=== PATIENT | male | born 1940 | race Caucasian/White ===

== ENCOUNTER 2017-04-25 15:36 | Emergency (ER) | payer OTHER ==
[~2017-04-25] VITALS: Ht 182.9 cm; Wt 81.7 kg
[~2017-04-25 15:36] MED LIST: ACETAMINOPHEN325 M1 PO; ADULT WAL-100 MG/5 M PO; ALDACTONE25 MG PO; AMLODIPINE BESYL5 MG PO; APAP500 PO; ARGINAID POWDE1 EACH PO; ASPIR 8181 MG PO; ASPIRIN EC325 M1 PO; ASPIRIN325 PO; BABY SHAMPOO; BACITRACIN-POL3.5 GM OPHTHALMIC; BETADINE TOP; CALAZIME TOP; CELEXA 20 MG TA20 M1 PO; CIPRO500 MG PO; CIPRO500 MG/5 M PO; CYANOCOBALAMIN PO; DUONEB 2.5-0.5 M3 ML INH; DURAGESIC25 MCG/HR TRANSDERM; ENOXAPARIN30 MG/0.1 INJECTION; ENSURE PLUS237 ML PO; FENTANYL PA25 MCG/HR TOP; FLOMAX PO; FOLIC ACID1 MG PO; HYDROCODON-ACE1 EAC7 PO; IRON325 PO; KAYEXALATE15 GM/601 GT; LEXAPRO 10 MG T10 MG PO; LEXAPRO5 MG PO; LISINOPRIL10 MG PO; LISINOPRIL40 MG PO; LOVASTAT20 PO; MAGIC CUP PO; MAGOX 400400 MG PO; MIRALAX17 GM PO; MIRALAX255 GM PO; MULTI VITAMIN1 EACH PO; NAMENDA XR28 MG PO; NYAMYC15 GM; PRENATAL PLUS1 EACH PO; PROBIOTIC1 EAC1 PO; REFRESH TEARS15 ML OPHTHALMIC; ROVIN-CF OF TA1 EACH PO; SENNA8.6 MG PO; SILVADENE20 GM; TAMSULOSIN HCL0.4 M1 PO; TRAMADOL 50 MG50 MG PO; TRINATAL GT TA1 EACH PO; TYLENOL325 MG PO; VITAMIN C PO; VITAMIN D1000 UNI1 PO; VITAMIN D250000 UNIT PO; VITAMIN D31000 UNI2 PO; VITAMINC500 PO; ZINC PO
[2017-04-25 16:49] LABS: URINE BLOOD 3+ (Negative); URINE COLOR RED; URINE GLUCOSE-RANDOM* NEGATIVE (Negative); URINE KETONES NEGATIVE (Negative); URINE NITRITE POSITIVE (Negative); URINE PROTEIN (DIPSTICK) 2+ (Negative)
[2017-04-25 16:56] LABS: ICTOTEST (BILI CONFIRMATORY) Negative (Negative); URINE BILIRUBIN NEGATIVE (Negative)
[2017-04-25 16:57] LABS: BACTERIA >30 Many /HPF (None Seen); CASTS None Seen /LPF (None Seen); CRYSTALS None Seen /LPF (None Seen); URINE RBC >20 Many /HPF (0-2); URINE WBC >25 Many /HPF (0-5)
[2017-04-25 17:00] LABS: SQUAMOUS 0-3 Few /LPF (0-3)
[2017-04-25] MEDS ORDERED: BACTRIM DS TAB1 EACH PO (18:12)
== END 2017-04-25 19:30 ==
LOC: ER 15:36
PROVIDERS: Nurse Practitioner
DX: S91.301A Unspecified open wound, right foot, initial encounter (principal); N39.0 Urinary tract infection, site not specified; I10 Essential (primary) hypertension; F32.9 Major depressive disorder, single episode, unspecified; F03.90 Unspecified dementia, unspecified severity, without behavioral disturbance, psychotic disturbance, mood disturbance, and anxiety; Z87.891 Personal history of nicotine dependence; Z86.73 Personal history of transient ischemic attack (TIA), and cerebral infarction without residual deficits; X58.XXXA Exposure to other specified factors, initial encounter; Y93.89 Activity, other specified; Y92.89 Other specified places as the place of occurrence of the external cause; Y99.8 Other external cause status

== ENCOUNTER 2017-05-21 18:04 | Inpatient (IN) | payer OTHER ==
[~2017-05-21] VITALS: Ht 167.6 cm; Wt 68.0 kg
--- NOTE | ~2017-05-21 | O ---
[facility] [place] [address] OPERATIVE REPORT Name: KATELYN LAMB Room #: 310-P ADM IN M.R.#: [id number] Admission: 05/21/17 Attend Phys: Karson Moise MD Discharge: Date of : 42 Report #: [id number] THIS REPORT FOR: //name// CC: Karson Kay DATE OF SERVICE: 05/21/2017 SERVICE: Orthopedics. FACILITY: [facility]. SURGEON: Iftikhar Love MD DIESEL ENGINE TESTER: None. PREOPERATIVE DIAGNOSES: 1. Gangrene, right lower extremity with exposed bone. 2. Dysvascular right lower extremity with poor circulation beyond this femoral circulation. POSTOPERATIVE DIAGNOSES: 1. Gangrene, right lower extremity with exposed bone. 2. Dysvascular right lower extremity with poor circulation beyond this femoral circulation. ADDITIONAL DIAGNOSIS: Severe hip and knee flexion contractures. PROCEDURES: 1. Right above-knee amputation. 2. Increased difficulty secondary to hip and knee flexion contractures. ESTIMATED BLOOD LOSS: 150 mL. COMPLICATIONS: None. DRAINS: One Hemovac. SPECIMENS: Right lower extremity sent for pathology. HISTORY AND INDICATIONS: The patient is a 77-year-old gentleman, who was brought to [facility] where he was found to have sepsis secondary to infection, right lower extremity with a white blood cell count of 20. He was stabilized and Orthopedics was consulted for definitive treatment. He was felt to be in need of an amputation and arterial studies were performed to assess whether below knee or above knee was optimal choice. He is bedridden [facility] [address] [place] [address] OPERATIVE REPORT Name: KATELYN LAMB Room #: 310-P ADM IN M.R.#: [id number] Admission: 05/21/17 Attend Phys: Karson Moise MD Discharge: Date of : 41 Report #: [id number] and has significant flexion contractures and this in conjunction with the arterial Doppler study revealed that above-knee amputation was the optimal treatment. The risks, benefits, alternatives and indications for the surgery were discussed with his , who is his durable power of contact lens blocker and cutter. Risks include but not limited to pain, bleeding, infection, injury to nerves or blood vessels, persistent pain despite surgical intervention, wound dehiscence, need for further surgery including revision amputation as well as complications related to anesthesia such as stroke, heart attack, pulmonary complications, thromboembolic disease and . Despite these risks, she wished for him to proceed. PROCEDURE IN DETAIL: After the right lower extremity was correctly identified in the preoperative holding area as the operative extremity, the patient was taken to the operating room where general anesthesia was induced without complications. He was placed on operating table and he was positioned in optimal condition. His upper extremities were able to be positioned appropriately, but his bilateral lower extremities had significant flexion contractures that did require additional efforts, but he was padded appropriately. He was on antibiotics preoperatively. The right lower extremity was prepped and draped in standard sterile fashion. Time-out procedure was performed. A sterile tourniquet was applied to the right leg and then tourniquet was inflated to 300 mmHg. Skin flaps were drawn on the thigh anteriorly and posteriorly. X-ray after was required throughout the procedure to obtain access to the posterior soft tissues as he had a knee flexion contracture of approximately 105 degrees. The skin incisions were then made with a fish mouth flaps anteriorly and posteriorly. Dissection was taken down to the fascia, which was then incised as well and then the anterior compartment musculature was transected with cautery vessels that were encountered throughout the amputation were isolated and ligated with 2-0 silk tie and then the femur was accessed. The periosteum was incised and that was reflected with a Page elevator and then a sagittal saw was used to perform the bone cut and then the bone was beveled to provide gentle slopes to minimize the risk of bony erosion through the soft tissues. The dissection was carried on the posterior flap through the skin and through the fascia and then eventually through the musculature as well and then the leg was passed off as specimen. The wound was thoroughly irrigated and then the tourniquet was let down and hemostasis was achieved within the wound. Some muscle debulking was required in order to get a better soft tissue envelope for closure. The deep fascia was closed over a drain with 0 vicryl. Due to existing contractures, an adductor myodesis was not indicated. The superficial layer was closed with 2- vicryl followed by 3-0 nylon using a mattress suture technique. A sterile dressing was then applied to the right leg. At this point, the General Surgery team came in and the patient was transferred [address] [address] OPERATIVE REPORT Name: ADONISKATELYN Brown Room #: 310-P [facility] IN [place]#: [id number] Admission: 05/21/17 Attend Phys: Karson Moise MD Discharge: Date of : 41 Report #: [id number] off the hospital bed and then flipped into the prone position for work on the sacral wound. Please see the general surgeon's dictation for the sacral decubitus portion of the procedure. There were no complications during my procedure and all counts were recorded as correct. <ELECTRONICALLY SIGNED> By: Iftikhar Love MD 05/24/17 1043 [id number] 2330 Iftikhar Love MD /nt
--- NOTE | ~2017-05-21 | HC ---
[facility] [place] [address] CONSULTATION Name: KATELYN LAMB Room #: 310-P ADM IN M.R.#: [id number] Admission: 05/21/17 Attend Phys: Karson Moise MD Discharge: Date of : 41 Report #: [id number] THIS REPORT FOR: //name// CC: Karson Kay DATE OF SERVICE: 05/22/2017 CHIEF COMPLAINT: Ulceration to the right foot with necrosis. HISTORY OF PRESENT ILLNESS: This is a 77-year-old white male patient who resides at [facility]. He has history of cerebrovascular accident, severe dementia and peripheral vascular disease. He has been followed by Dr. Ciaran Michel at [facility] for some time. He has severe flexion contractures of his right leg with chronic pressure ulcerations to the right foot and heel area. Dr. Michel has long ago recommended above knee amputation; however, there has not been consensus on the part of family, therefore, this has not been undertaken. He is admitted with worsening condition of his foot and I have been asked to see him in this regard. The patient cannot provide any information about himself. He does make eye contact, but does not answer any questions. MEDICATIONS: At this time include lisinopril, vitamin C, vitamins, magnesium oxide, Namenda, MiraLax, Tylenol, iron, Roscoe, Lexapro, Silvadene, fentanyl patch, Ensure and bacitracin polymyxin eye ointment. 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 SOCIAL HISTORY: The patient is a former smoker according to his records, no history of alcohol or recreational drug use. FAMILY HISTORY: Unknown and unobtainable due to the patient's condition. REVIEW OF SYSTEMS: Unobtainable due to the patient's level of mental status and his inability to answer any questions. PHYSICAL EXAMINATION: VITAL SIGNS: At this time include pulse 79, respiratory rate 12, blood pressure 116/80, temperature 96.9. GENERAL: This is a chronically ill, somewhat thin-appearing male patient appears to be in no obvious distress. HEAD: Normocephalic. NECK: Supple. LUNGS: Diminished. [address] [address] CONSULTATION Name: KATELYN LAMB Room #: 310-P [facility] IN [facility]#: [id number] Admission: 05/21/17 Attend Phys: Karson Moise MD Discharge: Date of : 41 Report #: [id number] HEART: Regular rhythm. ABDOMEN: Soft. Bowel sounds are present. He has a suprapubic catheter. Examination of the pelvic region demonstrates an unstageable pressure ulcer of the sacral region covered with some eschar and yellow fibrin, no exposed structures are noted at this time, depths of the wound and extent of the wound are indeterminate due to presence of eschar and slough. EXTREMITIES: Lower extremities demonstrate flexion contractures at the hips and knees, more so on the right than on the left. He has a very large ulceration involving the medial foot and ankle on the right side with exposed bone and tendon and a large amount of necrotic material with drainage and foul odor. I am not able to palpate a distal pulse. Left lower extremity seems a little bit better perfused. Once again, I am not able to palpate a distal pulse. He has eschar on the dorsal aspects of the third, fourth and fifth toes, an abrasion and a scab on the left knee and pretibial region. These areas do not appear to be infected. CLINICAL IMPRESSION: 1. Ulceration, likely secondary to pressure and compounded by peripheral arterial disease and severe flexion contractures involving the right foot and heel region. 2. Severe flexion contractures, right lower extremity at the knee and hip. 3. Superficial ulceration to the left third, fourth and fifth toes and abrasions to the left knee. 4. Unstageable sacral pressure ulceration. 5. Peripheral arterial disease by clinical exam. 6. Severe protein-calorie malnutrition. LABORATORY DATA: Sodium 139, potassium 4.0, chloride 107, CO2 of 23, BUN 57, creatinine 1.5, glucose 92. CRP is very elevated at 237. White blood cell count of 19,000, hemoglobin 7.2, hematocrit 22.7, platelet count 447,000. Differential is 82 neutrophils, 2 bands, 11 lymphocytes, 4 monocytes, albumin is low at 2.1. Cultures are pending. X-ray evaluation of right foot demonstrates diffuse degenerative changes and osteopenic changes without focal destruction. RECOMMENDATION: At this point in time, I think we will check arterial Dopplers just to better assess his flow status to the right lower extremity with his severe flexion contractures and extensive amount of ulceration and infection involving the foot with exposed bone and other deep structures. It is fairly likely that he has underlying osteomyelitis. I am also concerned that he does not have the vascular support to be able to support wound healing in this area. Since he is nonambulatory and has severe flexion contractures, this would likely best be treated with an above knee amputation of the right lower extremity. There is no family present to discuss this option with at this time. In the near term, we will use topical quarter strength Dakin's solution and moist gauze dressings. The sacral ulceration would benefit from a surgical debridement and if he were to go to the operating room for amputated surgery of the right leg, [place] [address] [place] [address] CONSULTATION Name: SKINNYBONNIEKATELYN Room #: 310-P [facility] IN .R.#: [id number] Admission: 05/21/17 Attend Phys: Karson Moise MD Discharge: Date of : 41 Report #: [id number] would recommend that the debridement be performed at that time. The left foot areas of eschar and abrasion are dry and intact and can be left that way. He will need turning and repositioning. The patient will need aggressive nutritional support for wound healing. I appreciate being asked to see him in consultation. <ELECTRONICALLY SIGNED> By: King Miles MD 05/23/17 0911 [id number] King Miles MD /nt
--- NOTE | ~2017-05-21 | S ---
[facility] [place] [address] [place] [address] SURGICAL PATH RPT PROCEDURE Name: JACQUELYN ARECHIGA Room #: 310-P ADM IN M.R.#: [id number] Admission: 05/21/17 Date of : 41 Discharge: Report #: [id number] Path Case #: [id number] PATHOLOGY REPORT COLLECTION DATE: 05/23/2017 RECEIVED DATE: 05/23/2017 SUBMITTING PHYS: Dr. Iftikhar Love OTHER PHYS: Dr. Renetta Fernandez, DO Dr. Karson Moise SPECIMEN(S) RECEIVED: A.Right above knee amputation * * * * * * * * * * * * FINAL DIAGNOSIS: Leg, right, above knee amputation: - Ulceration, dystrophic calcification, as well as gangrenous necrosis. - Acute inflammation forming abscess extending into underlying subcutaneous tissue. - Posterior tibial and popliteal artery showing complete luminal occlusion. - Anterior tibial artery showing partial occlusion (grossly). - Skin margin viable and unremarkable. - Bone margin extends 3.1 cm from skin margin, grossly viable. (IUV:mgr; 05/27/2017) PATHOLOGIST: Doretha Lawrence M.D. REPORT ELECTRONICALLY SIGNED BY: Doretha Lawrence M.D. DATE/TIME: 05/27/2017 18:51 * * * * * * * * * * * * GROSS PATHOLOGY: The specimen is received fresh, labeled "Jacquelyn Arechiga, right ovrxc-laz-zxff amputation" is a right rquiz-bsk-amvv amputation specimen measuring 15.3 cm from the margin resection to the medial condyle, 39.8 cm from the medial malleolus to the medial condyle and 23.8 cm from the calcaneus to the tip of the great toe. There is a 3.1 cm portion of exposed femur at the margin. The margin has a andrade-yellow to pink red, lobulated to congested appearance and appears grossly viable. The specimen is covered by andrade, rubbery skin. Multiple hypopigmented scars are noted throughout ranging from 0.4-1.5 cm. Surrounding the medial malleolus, a ulcerated, desiccated to ovoid lesion is present measuring 7.5 x 6.5 cm. This lesion exposes the underlying bone and musculature. 2.5 cm distal is [address] [address] SURGICAL PATH RPT PROCEDURE Name: JACQUELYN ARECHIGA Room #: 310-P ADM IN [facility].#: [id number] Admission: 05/21/17 Date of : 41 Discharge: Report #: [id number] Path Case #: [id number] a second, ulcerated, desiccated lesion measuring 10.5 x 5.5 cm. This extends to the base of the great toe and exposes underlying bone and musculature. The dorsal surface of the second toe has a third, ulcerated, desiccated lesion measuring 2.5 x 1.5 cm. All five toes are present. All five nails are thickened and yellow. The skin on the plantar surface of the foot has a desiccated, thickened appearance. An ovoid, andrade-yellow to pink red ulcer is noted along the lateral surface of the foot near the base of the fifth toe measuring 1.5 x 0.8 cm. Sectioning through the three major vessels reveals multiple areas of stenosis. In the popliteal artery, complete obstruction is identified by andrade-yellow, friable atheromatous plaque. The anterior tibial artery shows minimal calcification. The posterior tibial artery contains loosely attached clotted blood in both the arterial and venous structures. No additional abnormalities are identified. Risk Control Officer sections are submitted as follows: A1 - soft tissue at margin A2 - tissue from skin lesions A3 - posterior tibial artery A4 - popliteal artery after decalcification (KADE; 05/24/2017) CLINICAL HISTORY: Right leg gangrene, sacral decubitus ulcer INITIAL CPT CODE(S): A; 08565, 79230 Professional services performed by [facility] at [place] [address], [place] [address] Technical services performed by [facility] at [address] [place] [address], [address] [address]. [facility] [address] [place] [address] PHONE: [phone] DIRECTOR: Rad Vizcarra M.D. * * * END OF REPORT * * *
[~2017-05-21 18:04] MED LIST changes: +BACTRIM DS TAB1 EACH PO
[2017-05-21 18:06] VITALS: BP 83/41
[2017-05-21 18:48] LABS: HEMATOCRIT 24.7 % (42.0-52.0); MCH 24.4 pg (26.0-34.0); MCHC 32.3 g/dL (28.0-37.0); MCV 75.5 fL (80.0-100.0); PLATELET COUNT 569 thou/uL (150-400); RBC 3.27 mil/uL (4.50-6.00); RDW 16.3 % (10.5-14.5); WBC 20.7 thou/uL (4.0-11.0)
[2017-05-21 18:51] LABS: CALCIUM 8.7 mg/dL (8.5-10.1); CREATININE 1.8 mg/dL (0.7-1.3); MANUAL DIFF YES; POTASSIUM 4.2 mmol/L (3.5-5.1)
[2017-05-21 19:26] LABS: ABSOLUTE NEUTROPHILS 17.4 thou/uL (1.4-8.2); TOTAL CELL COUNT 100
[2017-05-21 19:27] LABS: ANISOCYTOSIS 2+; MICROCYTES 1+; SCHISTOCYTES FEW
[2017-05-21 19:51] LABS: URINE COLOR YELLOW; URINE GLUCOSE-RANDOM* NEGATIVE (Negative); URINE KETONES NEGATIVE (Negative); URINE PROTEIN (DIPSTICK) 2+ (Negative); URINE SPECIFIC GRAVITY 1.015 (1.003-1.035)
[2017-05-21 19:52] LABS: ICTOTEST (BILI CONFIRMATORY) Negative (Negative); URINE BILIRUBIN NEGATIVE (Negative)
[2017-05-21 19:53] LABS: URINE BLOOD TRACE (Negative); URINE LEUKOCYTES-REFLEX 3+ (Negative)
[2017-05-21 20:07] LABS: CASTS None Seen /LPF (None Seen); SQUAMOUS 0-3 Few /LPF (0-3); URINE RBC 3-10 Few /HPF (0-2)
[2017-05-21] MEDS ORDERED: LEXAPRO5 MG PO (21:32)
[2017-05-21] MEDS ORDERED: JUVEN PACKET1 EACH PO (21:32)
[2017-05-21] MEDS ORDERED: SILVADENE20 GM TP (21:33)
[2017-05-21 22:38] VITALS: BP 105/41
[2017-05-21 22:45] VITALS: BP 105/41
[2017-05-22 04:17] VITALS: BP 104/64
[2017-05-22 06:37] LABS: HEMATOCRIT 22.7 % (42.0-52.0); HEMOGLOBIN 7.2 gm/dL (14.0-18.0); MCH 24.6 pg (26.0-34.0); MCV 76.9 fL (80.0-100.0); RBC 2.95 mil/uL (4.50-6.00); RDW 16.6 % (10.5-14.5)
[2017-05-22 06:51] LABS: CALCIUM 8.1 mg/dL (8.5-10.1); CREATININE 1.5 mg/dL (0.7-1.3)
[2017-05-22 09:07] VITALS: BP 95/46
[2017-05-22 12:44] VITALS: BP 116/80
[2017-05-22 20:05] VITALS: BP 127/58
[2017-05-23] VITALS (7 sets, daily range): BP systolic 106–139; BP diastolic 48–73
[2017-05-23 08:55] LABS: ALBUMIN 1.3 g/dL (3.4-5.0); CALCIUM 8.3 mg/dL (8.5-10.1); CREATININE 1.2 mg/dL (0.7-1.3); POTASSIUM 3.6 mmol/L (3.5-5.1)
[2017-05-23 10:09] LABS: BASOPHILS 0.5 % (0.0-2.0); WBC 18.8 thou/uL (4.0-11.0)
[2017-05-23 10:11] LABS: ABSOLUTE NEUTROPHILS 14.8 thou/uL (1.4-8.2); EOSINOPHILS 0.5 % (0.0-3.0); HEMATOCRIT 22.4 % (42.0-52.0); LYMPHOCYTES 12.5 % (24.0-44.0); MCH 24.3 pg (26.0-34.0); MCHC 31.1 g/dL (28.0-37.0); MCV 78.1 fL (80.0-100.0); PLATELET COUNT 430 thou/uL (150-400); POLYS 78.5 % (36.0-66.0); RBC 2.87 mil/uL (4.50-6.00); RDW 16.4 % (10.5-14.5)
[2017-05-23 10:12] LABS: MANUAL DIFF NO
[2017-05-24 04:04] VITALS: BP 123/70
[2017-05-24 04:09] LABS: HEMATOCRIT 29.6 % (42.0-52.0); MCH 25.2 pg (26.0-34.0); MCHC 31.6 g/dL (28.0-37.0); MCV 79.7 fL (80.0-100.0); RBC 3.71 mil/uL (4.50-6.00); RDW 17.5 % (10.5-14.5); WBC 16.2 thou/uL (4.0-11.0)
[2017-05-24 04:15] LABS: CALCIUM 7.9 mg/dL (8.5-10.1); POTASSIUM 3.8 mmol/L (3.5-5.1)
[2017-05-24 04:16] LABS: HEMOGLOBIN 9.4 gm/dL (14.0-18.0)
[2017-05-24 08:00] VITALS: BP 130/57
[2017-05-24 15:58] VITALS: BP 129/67
[2017-05-24 20:00] VITALS: BP 135/64
[2017-05-25 04:10] VITALS: BP 130/66
[2017-05-25 08:00] VITALS: BP 139/64
[2017-05-25 16:00] VITALS: BP 139/65
[2017-05-25 19:13] VITALS: BP 133/65
[2017-05-26 03:30] VITALS: BP 139/77
[2017-05-26 07:42] VITALS: BP 146/82
[2017-05-26 15:20] VITALS: BP 148/70
[2017-05-26 19:08] VITALS: BP 138/76
[2017-05-27 04:10] VITALS: BP 142/58
[2017-05-27 04:42] LABS: HEMATOCRIT 25.7 % (42.0-52.0); HEMOGLOBIN 8.2 gm/dL (14.0-18.0); MCH 25.4 pg (26.0-34.0); MCHC 31.9 g/dL (28.0-37.0); MCV 79.5 fL (80.0-100.0); RBC 3.24 mil/uL (4.50-6.00); WBC 13.3 thou/uL (4.0-11.0)
[2017-05-27 04:55] LABS: CALCIUM 7.5 mg/dL (8.5-10.1); CREATININE 0.8 mg/dL (0.7-1.3); POTASSIUM 3.3 mmol/L (3.5-5.1)
[2017-05-27 07:30] VITALS: BP 161/70
[2017-05-27 15:42] VITALS: BP 154/86
[2017-05-27 20:30] VITALS: BP 147/67
[2017-05-28 04:22] LABS: HEMATOCRIT 26.3 % (42.0-52.0); HEMOGLOBIN 8.5 gm/dL (14.0-18.0); MCH 25.5 pg (26.0-34.0); MCHC 32.3 g/dL (28.0-37.0); MCV 78.9 fL (80.0-100.0); RBC 3.34 mil/uL (4.50-6.00); RDW 18.4 % (10.5-14.5); WBC 12.9 thou/uL (4.0-11.0)
[2017-05-28 04:35] VITALS: BP 140/61
[2017-05-28 04:38] LABS: CALCIUM 7.6 mg/dL (8.5-10.1); CREATININE 0.9 mg/dL (0.7-1.3); POTASSIUM 3.6 mmol/L (3.5-5.1)
[2017-05-28 07:23] VITALS: BP 150/78
[2017-05-28] MEDS ORDERED: ZOSYN 2.25 GR2.25 GM IV (13:28)
[2017-05-28 15:50] VITALS: BP 143/71
== END 2017-05-28 18:18 | DRG 853 ==
LOC: ER 18:04 → 3N 21:08 → EROBS 21:08 → 3N 22:56
PROVIDERS: Emergency Medicine; Hospitalist; Nurse Practitioner Family; Surgery
PROC: 0Y670ZZ Detachment at Right Femoral Region, Open Approach (ICD-10-PCS; principal; 2017-05-21)
PROC: 0KBN0ZZ Excision of Right Hip Muscle, Open Approach (ICD-10-PCS; 2017-05-23)
PROC: 30233N1 Transfusion of Nonautologous Red Blood Cells into Peripheral Vein, Percutaneous Approach (ICD-10-PCS; 2017-05-23)
PROC: 0KBP0ZZ Excision of Left Hip Muscle, Open Approach (ICD-10-PCS; 2017-05-23)
DX: A41.9 Sepsis, unspecified organism (principal); E43 Unspecified severe protein-calorie malnutrition; L89.154 Pressure ulcer of sacral region, stage 4; N17.0 Acute kidney failure with tubular necrosis; L03.115 Cellulitis of right lower limb; I96 Gangrene, not elsewhere classified; I69.351 Hemiplegia and hemiparesis following cerebral infarction affecting right dominant side; R47.01 Aphasia; F32.9 Major depressive disorder, single episode, unspecified; F41.9 Anxiety disorder, unspecified; I73.9 Peripheral vascular disease, unspecified; R65.20 Severe sepsis without septic shock; D64.9 Anemia, unspecified; Z96.641 Presence of right artificial hip joint; M24.561 Contracture, right knee; M24.551 Contracture, right hip; L97.529 Non-pressure chronic ulcer of other part of left foot with unspecified severity; S80.212A Abrasion, left knee, initial encounter; I12.9 Hypertensive chronic kidney disease with stage 1 through stage 4 chronic kidney disease, or unspecified chronic kidney disease; N18.9 Chronic kidney disease, unspecified; F03.90 Unspecified dementia, unspecified severity, without behavioral disturbance, psychotic disturbance, mood disturbance, and anxiety; N30.90 Cystitis, unspecified without hematuria; B96.20 Unspecified Escherichia coli [E. coli] as the cause of diseases classified elsewhere; Z79.899 Other long term (current) drug therapy; Z87.891 Personal history of nicotine dependence; Z68.24 Body mass index [BMI] 24.0-24.9, adult; Z74.01 Bed confinement status
CPT/HCPCS: 10096; 50010; 50101; 50386; 50403; 53000; 53353; 53354; 56524; 56525; 56527; 56528; 57091; 62110; 62900; 70005

== ENCOUNTER 2017-06-20 13:43 | Inpatient (IN) | payer OTHER ==
[~2017-06-20] VITALS: Ht 182.9 cm; Wt 61.2 kg
--- NOTE | ~2017-06-20 | S ---
[facility] [place] [address] SURGICAL PATH RPT PROCEDURE Name: JACQUELYN ARECHIGA Room #: 421-P ADM IN M.R.#: [id number] Admission: 06/20/17 Date of : 41 Discharge: Report #: [id number] Path Case #: [id number] PATHOLOGY REPORT COLLECTION DATE: 06/24/2017 RECEIVED DATE: 06/24/2017 SUBMITTING PHYS: Dr. Paulo Fernandez, DO OTHER PHYS: Dr. Jordy Kay SPECIMEN(S) RECEIVED: A.Sacral decubitus ulcer rim * * * * * * * * * * * * FINAL DIAGNOSIS: Skin and subcutaneous tissue, "sacral ulcer", debridement: - Squamous epithelium with adjacent ulceration and focal acute ulcer exudate. - No evidence of atypia or malignancy. (SKM:christiano; 06/26/2017) PATHOLOGIST: Annabel Wooten M.D. REPORT ELECTRONICALLY SIGNED BY: Annabel Wooten M.D. DATE/TIME: 06/26/2017 12:15 * * * * * * * * * * * * GROSS PATHOLOGY: The specimen is received in formalin, labeled "Jacquelyn Arechiga and sacral ulcer", are two roughly elliptical falcon-white indurated skin with underlying hemorrhagic soft tissue measuring 7.0 x 0.8 x 0.6 and 5.0 x 0.7 x 1.5 cm. Serology Teacher section in A1. (SWS; 06/24/2017) CLINICAL HISTORY: Decubitus ulcer INITIAL CPT CODE(S): A; 23497 Professional services performed by [facility] at [facility] [address], [place] [address] Technical services performed by [facility] at [address] [place] [address]. [facility] [address] [place] [address] SURGICAL PATH RPT PROCEDURE Name: JACQUELYN ARECHIGA Room #: 421-P ADM IN .R.#: [id number] Admission: 06/20/17 Date of : 41 Discharge: Report #: [id number] Path Case #: [id number] [place] [id number] [address] PHONE: [phone] DIRECTOR: Rad Vizcarra M.D. * * * END OF REPORT * * *
--- NOTE | ~2017-06-20 | H ---
[facility] [place] [place] [address] HISTORY AND PHYSICAL Name: KATELYN LAMB Room #: 421-P ADM IN M.R.#: [id number] Admission: 06/20/17 Attend Phys: Jordy Butterfield MD Discharge: Date of : 41 Report #: [id number] THIS REPORT FOR: //name// CC: [facility] DATE OF SERVICE: 06/20/2017 CHIEF COMPLAINT: Sacral wound. HISTORY OF PRESENT ILLNESS: The patient is a 77-year-old transferred back from [facility] for surgical treatment of his sacral wound. He was previously admitted with right foot wound and subsequently underwent a right above the knee amputation due to gangrenous right foot wound with exposed bone. He was medically stabilized and then transferred to [facility] for ongoing wound care of the sacral wound and other support. He does have a history of cerebrovascular disease and prior stroke with related vascular dementia and has been total care. PAST MEDICAL HISTORY: Cerebrovascular disease, chronic kidney disease, history of colitis, history of UTI. PAST SURGICAL HISTORY: As above. FAMILY HISTORY: Unknown. SOCIAL HISTORY: He is . His is living at home. It is unknown whether he has had any alcohol or tobacco use history. ALLERGIES: No known drug allergies. MEDICATIONS: Zosyn, iron, lisinopril, fentanyl patch, Lexapro, Namenda, magnesium, MiraLax. REVIEW OF SYSTEMS: He is unable to give review. PHYSICAL EXAMINATION: VITAL SIGNS: Temperature 36.3, pulse 49, respirations 18, blood pressure /51, O2 sat 96% on room air. GENERAL: He is awake and alert, in no distress. HEAD AND NECK: Unremarkable. LUNGS: Clear. HEART: Regular. ABDOMEN: Soft, normoactive bowel sounds. Sacral wound is dressed. EXTREMITIES: No cyanosis, clubbing or edema. There is a right AKA. NEUROLOGIC: He is pleasantly confused. He moves all extremities. [facility] [address] [place] [address] HISTORY AND PHYSICAL Name: KATELYN LAMB Room #: [facility] IN [facility].#: [id number] Admission: 06/20/17 Attend Phys: Jordy Butterfield MD Discharge: Date of : 41 Report #: [id number] ASSESSMENT: 1. Sacral wound, stage 4. 2. Cerebrovascular disease. 3. Recent right above-knee amputation. 4. Senile dementia. 5. Senile debility. 6. Hypertension. PLAN: Lab work will be obtained. We will try to support his nutritional status at best as he can tolerate. He has been assessed by Dr. Fernandez from the surgical service and there is a plan for debridement of the wound next week with a diverting colostomy to minimize stool contamination of his wound, which from the LTAC facility has contributed to delayed healing. Once medically stabilized, then we will look for [facility] care situation to manage wound care. <ELECTRONICALLY SIGNED> By: Jordy Butterfield MD 06/22/1700 Jordy Butterfield MD /nt
--- NOTE | ~2017-06-20 | D ---
[facility] [place] [address] DISCHARGE SUMMARY Name: KATELYN LAMB Room #: 421-P [facility] IN M.R.#: [id number] Admission: 06/20/17 Attend Phys: Jordy Butterfield MD Discharge: 06/29/17 Date of : 41 Report #: [id number] THIS REPORT FOR: //name// CC: Jordy Jackson [facility] FINAL DIAGNOSES: 1. Stage 4 sacral decubitus wound. 2. Cerebrovascular disease. 3. Prior right above-knee amputation. 4. Right hemiparesis, late effect. PROCEDURES: 1. Surgical wound debridement and diverting colostomy placement. 2. Replacement of suprapubic catheter. HOSPITAL COURSE: The patient was admitted electively for surgical wound debridement and placement of a diverting colostomy as he was incontinent of stool, which is continually saturating his wound. Please see the operative note. He tolerated the procedure without incident, other supportive measures and medications continued along with the wound care. His suprapubic catheter was obstructed and replaced it without incident. He had no other interval complication. PHYSICAL EXAMINATION: GENERAL: On the day of discharge, he was awake and alert, lying in bed, in no distress. VITAL SIGNS: Stable. LUNGS: Clear. HEART: Regular. ABDOMEN: Soft, normoactive bowel sounds with colostomy in place, suprapubic catheter in place. EXTREMITIES: On the left showed no edema. Postoperative changes which are on the right, the sacral wound was dressed. DISPOSITION: To be transferred to LTAC facility of [facility] under the care of Dr. Alvaro De La Cruz. Wound care will continue to follow and a wound VAC will be placed. I signed his transfer medication list. <ELECTRONICALLY SIGNED> By: Jordy Butterfield MD 07/02/17 0944 0830 0919 Jordy Butterfield MD /nt
--- NOTE | ~2017-06-20 | HC ---
[facility] [place] [place] [address] CONSULTATION Name: KATELYN LAMB Room #: 421-P [facility] IN M.R.#: [id number] Admission: 06/20/17 Attend Phys: Jordy Butterfield MD Discharge: 06/29/17 Date of : 42 Report #: [id number] THIS REPORT FOR: //name// CC: Jordy Jackson [facility] DATE OF SERVICE: 06/21/2017 CHIEF COMPLAINT: Stage IV sacral pressure ulceration and right above-knee amputation. HISTORY OF PRESENT ILLNESS: This is a 77-year-old white male patient with whom I am familiar from previous hospitalization with necrosis of his right foot. He subsequently underwent above-knee amputation on the right side. He has had a stage IV pressure ulceration. He has had bowel incontinence and is here for diverting colostomy. The patient is nonverbal. PAST MEDICAL HISTORY: Positive for right above-knee amputation, history of colitis, urinary tract infection, sneiiocn-ss-vmlppn protein-calorie malnutrition, and chronic anemia. FAMILY HISTORY: Noncontributory. REVIEW OF SYSTEMS: Unobtainable due to the patient's aphasia. ALLERGIES: None. PHYSICAL EXAMINATION: VITAL SIGNS: At this time include pulse rate 52, respiratory rate 18, blood pressure 126/65, and temperature 97.9. GENERAL: This is a chronically ill-appearing male patient who appears to be in on distress. HEENT: Head normocephalic. Nose ____ clear. NECK: Supple. LUNGS: Clear. HEART: Regular ____. ABDOMEN: Soft. Bowel sounds are present. EXTREMITIES: Pelvic region demonstrates a stage IV sacral pressure ulceration. It is clean and granulating. There are sutures in place on the right above-knee amputation site, no drainage at this time. CLINICAL IMPRESSION: 1. Stage IV sacral pressure ulceration. 2. Fecal incontinence, requiring diversion. 3. Recent right above-knee amputation. [facility] [address] [place] [address] CONSULTATION Name: KATELYN LAMB Room #: 421-P REPLACED BY [facility]#: [id number] Admission: 06/20/17 Attend Phys: Jordy Butterfield MD Discharge: 06/29/17 Date of : 42 Report #: [id number] RECOMMENDATIONS: Continue with dry gauze to the right above-knee amputation and quarter-strength Dakin's moist gauze to the sacral region. He is scheduled for surgical colostomy today. We will continue to follow ____ q.2 hour turning and repositioning, aggressive nutritional support. <ELECTRONICALLY SIGNED> By: King Miles MD 07/01/17 1305 0837 1005 King Miles MD /nt
--- NOTE | ~2017-06-20 | EKG ---
[address] [address] ELECTROCARDIOGRAM REPORT Name: CATRACHITO LAMBChanel Brown Room #: 421- ADM IN M.R.#: [id number] Admission: 06/20/17 Attend Phys: Jordy Butterfield MD Discharge: Date of : 41 Report #: [id number] THIS REPORT FOR: //name// [facility] Test Date: 2017-06-22 Test Time: 17:15:20 Pat Name: KATELYN LAMB Department: Room: 421 Gender: M Stove Mounter: mary : 1940 Requested By: Paulo Fernandez Order Number: [id number] MD: Ciaran Jacome Measurements Intervals [place] Rate: 57 P: 52 UT: 197 QRS: 27 QRSD: 87 T: 84 QT: 426 QTc: 415 Interpretive Statements Sinus rhythm LVH with secondary repolarization abnormality Baseline wander in lead(s) V1 Compared to ECG 11/05/2014 12:44:21 Nonspecific change in the lateral T wave abnormality Electronically Signed On 06-23-2017 13:38:02 CDT by Ciaran Jacome [email or web address] <ELECTRONICALLY SIGNED> By: Ciaran Jacome MD, [facility] 06/23/17 1338 1715 1715 Ciaran Jacome MD, [facility] /EPI
[~2017-06-20 13:43] MED LIST changes: +JUVEN PACKET1 EACH PO; +SILVADENE20 GM TP; +ZOSYN 2.25 GR2.25 GM IV
[2017-06-20 19:58] VITALS: BP 122/51
[2017-06-21 03:47] VITALS: BP 126/65
[2017-06-21 09:34] VITALS: BP 133/70
[2017-06-21 10:06] LABS: HEMATOCRIT 36.2 % (42.0-52.0); HEMOGLOBIN 11.7 gm/dL (14.0-18.0); MCHC 32.3 g/dL (28.0-37.0); MCV 83.5 fL (80.0-100.0); RBC 4.33 mil/uL (4.50-6.00); RDW 22.3 % (10.5-14.5)
[2017-06-21 10:28] LABS: ALBUMIN 2.6 g/dL (3.4-5.0); CALCIUM 9.7 mg/dL (8.5-10.1); TOTAL BILIRUBIN 0.6 mg/dL (<0.1-1.0); TOTAL PROTEIN 8.5 g/dL (6.4-8.2)
[2017-06-21 16:33] VITALS: BP 114/68
[2017-06-21 19:59] VITALS: BP 93/58
[2017-06-22 03:10] VITALS: BP 132/69
[2017-06-22 09:03] VITALS: BP 145/78
[2017-06-22 17:36] VITALS: BP 127/64
[2017-06-22 20:00] VITALS: BP 138/66
[2017-06-22 23:33] VITALS: BP 138/66
[2017-06-23 04:30] VITALS: BP 141/87
[2017-06-23 06:19] LABS: CALCIUM 9.3 mg/dL (8.5-10.1); POTASSIUM 3.8 mmol/L (3.5-5.1)
[2017-06-23 09:00] VITALS: BP 168/93
[2017-06-23 18:00] VITALS: BP 144/57
[2017-06-23 19:37] VITALS: BP 101/48
[2017-06-24 03:34] VITALS: BP 134/62
[2017-06-24 08:30] VITALS: BP 116/85
[2017-06-24 20:00] VITALS: BP 129/67
[2017-06-25 04:00] VITALS: BP 145/88
[2017-06-25 08:01] VITALS: BP 126/82
[2017-06-25 11:32] LABS: HEMATOCRIT 33.8 % (42.0-52.0); HEMOGLOBIN 10.7 gm/dL (14.0-18.0); MCH 26.7 pg (26.0-34.0); MCHC 31.7 g/dL (28.0-37.0); MCV 84.1 fL (80.0-100.0); RBC 4.02 mil/uL (4.50-6.00); RDW 21.6 % (10.5-14.5); WBC 11.1 thou/uL (4.0-11.0)
[2017-06-25 11:49] LABS: CALCIUM 9.3 mg/dL (8.5-10.1); CREATININE 1.1 mg/dL (0.7-1.3); POTASSIUM 3.9 mmol/L (3.5-5.1)
[2017-06-25 18:02] VITALS: BP 162/90
[2017-06-25 20:00] VITALS: BP 139/66; BP 182/102
[2017-06-26 04:30] VITALS: BP 104/64
[2017-06-26 08:55] VITALS: BP 143/71
[2017-06-26 16:03] VITALS: BP 102/61
[2017-06-26 20:00] VITALS: BP 141/81
[2017-06-27 04:00] VITALS: BP 137/81
[2017-06-27 08:59] VITALS: BP 119/68
[2017-06-27 16:11] VITALS: BP 112/63
[2017-06-27 20:00] VITALS: BP 140/64; BP 98/61
[2017-06-28 04:22] VITALS: BP 138/54
[2017-06-28 07:55] VITALS: BP 119/76
[2017-06-28 15:17] VITALS: BP 119/76
[2017-06-28 15:43] VITALS: BP 108/61
[2017-06-28 21:20] VITALS: BP 130/67
[2017-06-29 03:08] VITALS: BP 129/66
[2017-06-29 07:44] VITALS: BP 126/62
== END 2017-06-29 13:31 | DRG 579 ==
LOC: 4E 13:43
PROVIDERS: Internal Medicine Geriatric Medicine
DX: L89.154 Pressure ulcer of sacral region, stage 4 (principal); E43 Unspecified severe protein-calorie malnutrition; Z68.1 Body mass index [BMI] 19.9 or less, adult; I69.351 Hemiplegia and hemiparesis following cerebral infarction affecting right dominant side; T83.098A Other mechanical complication of other urinary catheter, initial encounter; Y84.6 Urinary catheterization as the cause of abnormal reaction of the patient, or of later complication, without mention of misadventure at the time of the procedure; R15.9 Full incontinence of feces; N18.9 Chronic kidney disease, unspecified; I73.9 Peripheral vascular disease, unspecified; I12.9 Hypertensive chronic kidney disease with stage 1 through stage 4 chronic kidney disease, or unspecified chronic kidney disease; F03.90 Unspecified dementia, unspecified severity, without behavioral disturbance, psychotic disturbance, mood disturbance, and anxiety; Z89.511 Acquired absence of right leg below knee; Z87.19 Personal history of other diseases of the digestive system; Z87.440 Personal history of urinary (tract) infections; Y92.89 Other specified places as the place of occurrence of the external cause; Z79.899 Other long term (current) drug therapy; Z23 Encounter for immunization
CPT/HCPCS: 10783; 50010; 50101; 50386; 50403; 56524; 56525; 62110; 62900; 70005

== ENCOUNTER 2017-08-06 05:47 | Emergency (ER) | payer OTHER ==
[~2017-08-06] VITALS: Ht 185.4 cm; Wt 80.7 kg
== END 2017-08-06 08:22 | disposition home or self-care (01) ==
LOC: ER 05:47
DX: K94.09 Other complications of colostomy (principal); I10 Essential (primary) hypertension; I63.9 Cerebral infarction, unspecified; F32.9 Major depressive disorder, single episode, unspecified; F03.90 Unspecified dementia, unspecified severity, without behavioral disturbance, psychotic disturbance, mood disturbance, and anxiety; I73.9 Peripheral vascular disease, unspecified; E66.9 Obesity, unspecified; Z98.890 Other specified postprocedural states; Z87.891 Personal history of nicotine dependence

== ENCOUNTER 2018-02-11 16:49 | Inpatient (IN) | payer OTHER ==
[2018-02-11] VITALS (23 sets, daily range): BP systolic 87–162; BP diastolic 56–135
[~2018-02-11] VITALS: Ht 175.3 cm; Wt 53.5 kg
--- NOTE | ~2018-02-11 | HC ---
[facility] [place] [address] [place] [address] CONSULTATION Name: KATELYN LAMB Kevin Room #: 244-P ADM IN M.R.#: [id number] Admission: 02/11/18 Attend Phys: Renetta Kay MD Discharge: Date of : 41 Report #: [id number] THIS REPORT FOR: //name// CC: Renetta Kay TYPE OF REPORT: Infectious diseases consultation. REASON FOR CONSULTATION: I was asked to evaluate concerning septic shock. HISTORY OF PRESENT ILLNESS: The patient was a 77-year-old half-way resident who presents through the Emergency Room with altered mental status. He does have underlying dementia. He has had decreased urine output. Has a suprapubic catheter and a colostomy. No diarrhea reported. He has a chronic wound to his coccyx. No definite cough or sputum production. No aspiration episodes noted. Given IV fluids in the Emergency Room, he did show some improvement, but blood pressure now has dropped again. The patient was unable to give any details of his history. He did not complain of any chest pain or abdominal pain. Nursing has noticed no cough or sputum production. He does have a suprapubic catheter in place. ALLERGIES: None known. MEDICATIONS: As noted on his MAR, I have given ceftriaxone in the Emergency Room. PAST MEDICAL HISTORY: Hypertension, stroke, right hemiparesis and chronic right above the knee amputation. Depression, dementia, peripheral vascular disease, right hip dislocation, status post ORIF and hemiarthroplasty. MRSA colonizer. FAMILY HISTORY: Noncontributory. SOCIAL HISTORY: shelter resident, past smoker and no significant alcohol intake. REVIEW OF SYSTEMS: As noted above. PHYSICAL EXAMINATION: VITAL SIGNS: Temperature 97.7; blood pressure in the 80, systolic and pulse 90s. GENERAL: The patient was alert and cooperative. On room air, oxygen saturation adequate. EYES: He had conjunctivitis, right eye greater than left. MOUTH: Unremarkable. NECK: Supple. LUNGS: Coarse breath sounds in the right base posteriorly. HEART: Regular without appreciable murmur. [facility] [address] [place] [address] CONSULTATION Name: KATELYN LAMB Kevin Room #: [address] [place] [address] IN M.R.#: [id number] Admission: 02/11/18 Attend Phys: Renetta Kay MD Discharge: Date of : 41 Report #: [id number] ABDOMEN: Soft and nontender with no hepatosplenomegaly or mass. His colostomy site was unremarkable. Suprapubic catheter unremarkable. He had a small wound to his coccyx. No surrounding cellulitis and no fluctuance. Peritoneum unremarkable. Mild intertrigo to the scrotum. EXTREMITIES: Right above the knee amputation site unremarkable. Left lower extremity had stage 1 pressure wounds to the dorsum of his foot and lateral foot. LABORATORY DATA: Hemoglobin 14; WBC 25.9 and platelet count 400,000. Differential: 72% segs, 19% lymphs and lactate 2.3. Sodium 143, potassium 4.2, bicarbonate 25 and creatinine 7.4. AST 35, bilirubin 0.8, alkaline phosphatase 105, ALT 43 and albumin at 3.1. Urinalysis, many wbc's and many bacteria. Blood and urine cultures are pending. RADIOLOGICAL DATA: Chest x-ray, no acute change. IMPRESSION: A 77-year-old half-way resident with urosepsis, acute renal failure and leukocytosis. PLAN: Recommend continuing broad antibiotic coverage. Change suprapubic catheter. We will check ct abd pelvis to ensure no evidence of obstruction or hydronephrosis. IV fluids and vasopressors as necessary. <ELECTRONICALLY SIGNED> By: Dylon De La Cruz MD 02/12/18 1848 2034 0024 Dylon De La Cruz MD /nt
--- NOTE | ~2018-02-11 | EKG ---
[place] [address] [facility] [place] [address] ELECTROCARDIOGRAM REPORT Name: KATELYN LAMB Room #: 244-P ADM IN M.R.#: [id number] Admission: 02/11/18 Attend Phys: Renetta Kay MD Discharge: Date of : 41 Report #: [id number] THIS REPORT FOR: //name// [facility] ED Test Date: 2018-02-11 Test Time: 17:00:09 Pat Name: KATELYN LAMB Department: Room: Gender: M Machine Shop Helper: HAYLEE : 1940 Requested By: Alina Rodrigues Order Number: [id number] MD: Ciaran Jacome Measurements Intervals [place] Rate: 85 P: 45 IA: 170 QRS: 45 QRSD: 93 T: 79 QT: 421 QTc: 501 Interpretive Statements Sinus rhythm Atrial premature complexes Probable LVH with secondary repol abnrm Prolonged QT interval Baseline wander in lead(s) V4 Compared to ECG 06/22/2017 17:15:20 Atrial premature complex(es) now present Prolonged QT interval now present nonspecific change in the ST and T-wave segments Electronically Signed On 02-12-2018 7:49:23 CDT by Ciaran Jacome [email or web address] <ELECTRONICALLY SIGNED> By: Ciaran Jacome MD, [facility] 02/12/18 0749 170 1700 Ciaran Jacome MD, [facility] /EPI
--- NOTE | ~2018-02-11 | HC ---
[facility] [place] [address] [place] [address] CONSULTATION Name: KATELYN LAMB Room #: 428-P [facility] IN M.R.#: [id number] Admission: 02/11/18 Attend Phys: Renetta Kay MD Discharge: 02/19/18 Date of : 41 Report #: [id number] THIS REPORT FOR: //name// CC: Renetta Kay DATE OF SERVICE: 02/12/2018 WOUND CARE CONSULTATION PERSONAL PHYSICIAN: Renetta Kay MD CHIEF COMPLAINT: Sacral decubitus ulcer. HISTORY OF PRESENT ILLNESS: This is a 77-year-old white male with a longstanding history of stage 4 decubitus ulcer in his sacrococcygeal region. We saw the patient several months ago for this sacral decubitus ulcer with exposed bone. The patient was started on aggressive local wound care and the patient was discharged from the hospital and is currently at a long-term care facility. At the facility, it was noted that the patient had altered mental status and had a systolic blood pressure in the 80s. The patient was brought to the Emergency Department for further evaluation and was admitted to the hospital with the diagnosis of sepsis, UTI and dehydration. While here, we have been asked to follow the patient for his wounds. The patient himself is unable to give any history due to dementia, but according to the nursing notes, the patient still has what appears to be a resolving stage 4 decubitus ulcer in the sacrococcygeal region as well as some deep tissue type injuries on the bony prominences of his right foot. PAST MEDICAL HISTORY: Significant for hypertension, CVA, chronic protein-calorie malnutrition, dementia, peripheral arterial disease. The patient has undergone previous colostomy with kvhtp-[id number] amputation on the left. CURRENT MEDICATIONS: Multiple. I reviewed the patient's medication list. DRUG ALLERGIES: None. SOCIAL HISTORY: The patient resides in a care facility, has a remote history of smoking. Does not drink alcohol. FAMILY HISTORY AND REVIEW OF SYSTEMS: Unobtainable because of the patient's dementia. PHYSICAL EXAMINATION: VITAL SIGNS: The patient is afebrile, pulse 87, respirations 16, BP 90/74. GENERAL: This is an awake, alert and oriented x 1 person, but not place, time, [address] [address] CONSULTATION Name: KATELYN LAMB Room #: 428-P [facility] IN .R.#: [id number] Admission: 02/11/18 Attend Phys: Renetta Kay MD Discharge: 02/19/18 Date of : 41 Report #: [id number] white male who is chronically ill appearing. HEENT: Normocephalic, atraumatic. Mucous membranes are dry. Pupils are round. Sclerae white. NECK: Supple without rigidity or JVD. LUNGS: Diminished breath sounds heard throughout. HEART: Regular without murmur. ABDOMEN: Soft, nontender with PEG tube and colostomy in place. Evaluation of the sacrococcygeal region reveals a resolving stage 4 decubitus ulcer with still a small amount of palpable bone in the central portion. The rest of the ulceration is clean and granulating. The scar tissue without signs of further pressure. There is no significant tunneling. There is minimal serosanguineous drainage noted without odor. EXTREMITIES: The patient's right lower extremity has some multiple areas of bruising and nonblanchable erythema over the bony prominences at the dorsal part of the foot and toes. There are no open ulcerations noted on the right foot. Right heel is intact. Left above-the knee amputation is intact. NEUROLOGIC: Cranial nerves 2-12 grossly intact. Motor and sensory grossly intact. LABORATORY VALUES: White count 25.3, hemoglobin 12.4. BUN 174, creatinine 5.5, albumin 2.4. IMPRESSION: 1. Resolving stage 4 sacrococcygeal decubitus ulcer present on admission. 2. Sepsis. 3. Urinary tract infection. 4. Acute renal failure. 5. Protein-calorie malnutrition -- severe with the albumin of 2.4. 6. Multiple deep tissue type injuries to the right foot without open ulcerations. 7. Generalized debility. PLAN: At this time, we will use foam dressings over the sacrococcygeal ulcer changes daily and as needed p.r.n. soilage. We will use a low air loss mattress, have the patient turned every 2 hours. We will use Betadine to the right foot areas of discoloration daily. Put the patient in a foam padded boot for heel protection on the right. We will continue all other current medications. We will try to maximize the patient's protein supplementation via his PEG tube. We will continue to follow the patient while he is here. <ELECTRONICALLY SIGNED> By: Reginald Pleitez MD 02/20/18 1318 1430 0148 Reginald Pleitez MD /coleen
--- NOTE | ~2018-02-11 | HC ---
[facility] [place] [place] [address] CONSULTATION Name: KATELYN LAMB Room #: 428-P ADM IN M.R.#: [id number] Admission: 02/11/18 Attend Phys: Renetta Kay MD Discharge: Date of : 41 Report #: [id number] THIS REPORT FOR: //name// CC: Renetta Kay DATE OF SERVICE: 02/12/2018 REASON FOR CONSULTATION: Acute kidney injury. HISTORY OF PRESENT ILLNESS: The details of the history were obtained from the medical chart as the patient is not able to provide me with any history. He is a half-way facility patient, 77-year-old with past medical history of dementia. He also is known to have sacral decubitus with what seems to be diversion colostomy, suprapubic catheter. He had very decreased p.o. intake in the nursing facility per the notes. Along with that, urine output was on the low side. Blood pressure was extremely low. I am not really sure about his mental status baseline; however, there is a mention that he had some issues with change in his mental status. On presentation to the Emergency Room, he was found to have a creatinine of 7.4. Previous records were reviewed. It does look like that the patient has normal kidney function back in 2017. I am being asked to manage his acute kidney injury. PAST MEDICAL HISTORY: Obtained from the medical record: 1. Hypertension. 2. CVA. 3. Broken right hip. 4. Below-knee amputation. 5. Status post colostomy. 6. Status post suprapubic catheter. 7. Dementia. SOCIAL HISTORY: Resides in a nursing facility. FAMILY HISTORY: Unobtainable. : Unobtainable given the patient's mental status. MEDICATIONS: Listed on his medications are the followin. Lisinopril. 2. Mirtazapine. 3. Namenda. PHYSICAL EXAMINATION: GENERAL: The patient is currently lethargic. VITAL SIGNS: Blood pressure recently 73/58. HEAD AND NECK: Conjunctivitis present. [facility] [address] [place] [address] CONSULTATION Name: ADONISKATELYN Brown Room #: 428-P [facility] IN .R.#: [id number] Admission: 02/11/18 Attend Phys: Renetta Kay MD Discharge: Date of : 41 Report #: [id number] CHEST: No crackles. CARDIOVASCULAR: No rub. ABDOMEN: Suprapubic catheter with a colostomy. LOWER EXTREMITIES: Below-knee amputation. LABORATORY DATA: Laboratory values reviewed. Sodium 150, potassium 3.7, BUN 174, creatinine 5.5, down from 7.4 on presentation. IMAGING: CT abdomen and pelvis, chest x-ray reviewed. ASSESSMENT, IMPRESSION, PLAN: 1. Acute kidney injury. 2. Hypernatremia. 3. Hypotension with what seems to be severe sepsis. 4. Decubitus ulcers. 5. Status post diversion colostomy. 6. Suprapubic catheter. 7. This all seems to be due to prerenal causes. 8. We will reformulate the IV fluid. 9. Septic workup initiated. 10. Broad-spectrum antibiotics. 11. Urine output being monitored through his suprapubic catheter. 12. Follow cultures and adjust antibiotic accordingly. 13. Avoid nephrotoxins. 14. Manage his blood pressure with IV fluids, pressors. 15. We will continue to follow along. <ELECTRONICALLY SIGNED> By: Tray Reaves MD 02/14/18 0758 0807 0921 Tray Reaves MD /nt
[2018-02-11 17:27] LABS: MCH 27.6 pg (26.0-34.0); MCHC 32.5 g/dL (28.0-37.0); MCV 84.9 fL (80.0-100.0); PLATELET COUNT 400 thou/uL (150-400); RBC 5.07 mil/uL (4.50-6.00); RDW 15.3 % (10.5-14.5); WBC 25.9 thou/uL (4.0-11.0)
[2018-02-11 17:29] LABS: URINE CLARITY CLOUDY; URINE COLOR YELLOW
[2018-02-11 17:30] LABS: URINE BILIRUBIN NEGATIVE (Negative); URINE BLOOD 1+ (Negative); URINE GLUCOSE-RANDOM* NEGATIVE (Negative); URINE KETONES NEGATIVE (Negative); URINE LEUKOCYTES 3+ (Negative); URINE NITRITE NEGATIVE (Negative); URINE PROTEIN (DIPSTICK) 2+ (Negative); URINE SPECIFIC GRAVITY 1.015 (1.005-1.035); URINE UROBILINOGEN 0.2 E.U./dl (0.2-1.0)
[2018-02-11 17:31] LABS: URINE RBC 3-10 Few /HPF (0-2); URINE WBC >25 Many /HPF (0-5)
[2018-02-11 17:32] LABS: BACTERIA >30 Many /HPF (None Seen); CASTS None Seen /LPF (None Seen); CRYSTALS None Seen /LPF (None Seen); SQUAMOUS 0-3 Few /LPF (0-3)
[2018-02-11 17:42] LABS: CALCIUM 9.7 mg/dL (8.5-10.1); CREATININE 7.4 mg/dL (0.7-1.3); POTASSIUM 4.2 mmol/L (3.5-5.1)
[2018-02-11 17:47] LABS: ALBUMIN 3.1 g/dL (3.4-5.0); TOTAL BILIRUBIN 0.8 mg/dL (<0.1-1.0); TOTAL PROTEIN 9.7 g/dL (6.4-8.2)
[2018-02-11 18:14] LABS: ABSOLUTE NEUTROPHILS 18.6 thou/uL (1.4-8.2)
[2018-02-11] MEDS ORDERED: SENNA8.6 MG PO (18:38)
[2018-02-11] MEDS ORDERED: REMERON15 MG PO (18:39)
[2018-02-11 22:21] LABS: CALCIUM 8.8 mg/dL (8.5-10.1); CREATININE 6.5 mg/dL (0.7-1.3); POTASSIUM 3.9 mmol/L (3.5-5.1)
[2018-02-12] VITALS (60 sets, daily range): BP systolic 64–234; BP diastolic 32–198
[2018-02-12 04:54] LABS: HEMATOCRIT 38.1 % (42.0-52.0); HEMOGLOBIN 12.4 gm/dL (14.0-18.0); MCH 27.6 pg (26.0-34.0); MCHC 32.6 g/dL (28.0-37.0); MCV 84.7 fL (80.0-100.0); RBC 4.49 mil/uL (4.50-6.00); RDW 15.3 % (10.5-14.5); WBC 25.3 thou/uL (4.0-11.0)
[2018-02-12 05:08] LABS: PLATELET COUNT 294 thou/uL (150-400)
[2018-02-12 05:15] LABS: ALBUMIN 2.4 g/dL (3.4-5.0); CALCIUM 8.6 mg/dL (8.5-10.1); POTASSIUM 3.7 mmol/L (3.5-5.1); TOTAL BILIRUBIN 0.8 mg/dL (<0.1-1.0); TOTAL PROTEIN 7.8 g/dL (6.4-8.2)
[2018-02-12 05:25] LABS: CREATININE 5.5 mg/dL (0.7-1.3)
[2018-02-12 07:47] LABS: ABSOLUTE NEUTROPHILS 20.7 thou/uL (1.4-8.2)
[2018-02-12 07:48] LABS: ANISOCYTOSIS SLIGHT; LARGE PLATELETS OCCASIONAL; POIKILOCYTOSIS SLIGHT
[2018-02-13] VITALS (43 sets, daily range): BP systolic 63–134; BP diastolic 19–105
[2018-02-13 05:58] LABS: HEMOGLOBIN 10.5 gm/dL (14.0-18.0); MCH 27.7 pg (26.0-34.0); MCHC 32.9 g/dL (28.0-37.0); MCV 84.3 fL (80.0-100.0); RBC 3.8 mil/uL (4.50-6.00); RDW 15.4 % (10.5-14.5)
[2018-02-13 06:03] LABS: ALBUMIN 2.8 g/dL (3.4-5.0); CALCIUM 8.1 mg/dL (8.5-10.1); PHOSPHORUS 2.9 mg/dL (2.5-4.9)
[2018-02-13 06:09] LABS: CREATININE 3.5 mg/dL (0.7-1.3); POTASSIUM 2.8 mmol/L (3.5-5.1)
[2018-02-14 00:01] VITALS: BP 105/51
[2018-02-14 00:45] VITALS: BP 104/66
[2018-02-14 05:27] LABS: ALBUMIN 2.6 g/dL (3.4-5.0); CALCIUM 8.8 mg/dL (8.5-10.1); PHOSPHORUS 2.8 mg/dL (2.5-4.9); POTASSIUM 3.5 mmol/L (3.5-5.1)
[2018-02-14 05:38] LABS: CREATININE 2.5 mg/dL (0.7-1.3)
[2018-02-14 08:05] VITALS: BP 82/44
[2018-02-14 11:32] VITALS: BP 124/70
[2018-02-14 16:27] VITALS: BP 99/59
[2018-02-14 19:40] VITALS: BP 112/71
[2018-02-15 04:45] VITALS: BP 104/49
[2018-02-15 06:13] LABS: ALBUMIN 2.3 g/dL (3.4-5.0); CALCIUM 8.4 mg/dL (8.5-10.1); CREATININE 2.1 mg/dL (0.7-1.3); PHOSPHORUS 2.6 mg/dL (2.5-4.9); POTASSIUM 3.4 mmol/L (3.5-5.1)
[2018-02-15 19:43] VITALS: BP 92/28
[2018-02-16 04:30] VITALS: BP 114/99
[2018-02-16 06:53] LABS: HEMATOCRIT 37.9 % (42.0-52.0); HEMOGLOBIN 12.1 gm/dL (14.0-18.0); MCH 27.6 pg (26.0-34.0); MCV 86.3 fL (80.0-100.0); RBC 4.38 mil/uL (4.50-6.00); RDW 15.2 % (10.5-14.5); WBC 18.1 thou/uL (4.0-11.0)
[2018-02-16 07:19] LABS: ALBUMIN 2.4 g/dL (3.4-5.0); CALCIUM 8.7 mg/dL (8.5-10.1); CREATININE 1.7 mg/dL (0.7-1.3); PHOSPHORUS 2.1 mg/dL (2.5-4.9); POTASSIUM 3.6 mmol/L (3.5-5.1); TOTAL BILIRUBIN 0.7 mg/dL (<0.1-1.0); TOTAL PROTEIN 7.6 g/dL (6.4-8.2)
[2018-02-16 07:30] VITALS: BP 113/67
[2018-02-16 16:30] VITALS: BP 117/69
[2018-02-16 19:43] VITALS: BP 111/63
[2018-02-17 04:29] VITALS: BP 123/74
[2018-02-17 06:13] LABS: ABSOLUTE NEUTROPHILS 13.3 thou/uL (1.4-8.2); BASOPHILS 0.3 % (0.0-2.0); EOSINOPHILS 2.8 % (0.0-3.0); HEMATOCRIT 33.1 % (42.0-52.0); HEMOGLOBIN 10.8 gm/dL (14.0-18.0); LYMPHOCYTES 14.5 % (24.0-44.0); MCH 28.1 pg (26.0-34.0); MCHC 32.6 g/dL (28.0-37.0); MCV 86.1 fL (80.0-100.0); MONOCYTES 6.4 % (1.0-8.0); PLATELET COUNT 248 thou/uL (150-400); RBC 3.85 mil/uL (4.50-6.00); RDW 15.3 % (10.5-14.5); WBC 17.5 thou/uL (4.0-11.0)
[2018-02-17 06:25] LABS: ALBUMIN 2.4 g/dL (3.4-5.0); CALCIUM 8.2 mg/dL (8.5-10.1); CREATININE 1.3 mg/dL (0.7-1.3); PHOSPHORUS 2.4 mg/dL (2.5-4.9)
[2018-02-17 08:05] VITALS: BP 83/45
[2018-02-17 08:43] VITALS: BP 102/55
[2018-02-17 15:48] VITALS: BP 116/75
[2018-02-17 19:13] VITALS: BP 112/72
[2018-02-18 06:17] LABS: HEMATOCRIT 30.2 % (42.0-52.0); HEMOGLOBIN 9.9 gm/dL (14.0-18.0); MCH 28.4 pg (26.0-34.0); MCHC 32.9 g/dL (28.0-37.0); MCV 86.2 fL (80.0-100.0); RBC 3.5 mil/uL (4.50-6.00); RDW 15.4 % (10.5-14.5)
[2018-02-18 06:41] LABS: ALBUMIN 2.3 g/dL (3.4-5.0); CALCIUM 8.2 mg/dL (8.5-10.1); CREATININE 1.3 mg/dL (0.7-1.3); PHOSPHORUS 2.7 mg/dL (2.5-4.9); POTASSIUM 4.1 mmol/L (3.5-5.1)
[2018-02-18 07:37] VITALS: BP 95/62
[2018-02-18 16:00] VITALS: BP 118/60
[2018-02-18 20:11] VITALS: BP 123/69
[2018-02-19 04:21] VITALS: BP 135/80
[2018-02-19 07:43] VITALS: BP 133/70
[2018-02-19] MEDS ORDERED: DUONEB 2.5-0.5 M3 ML INH (09:42)
[2018-02-19] MEDS ORDERED: AUGMENTIN 500-1 EACH PO (09:43)
[2018-02-19] MEDS ORDERED: CIPROFLOXIN HC2.5 M1 OPHTHALMIC (09:44)
[2018-02-19] MEDS ORDERED: NAMENDA 5 MG TAB5 M1 PO (09:46)
[2018-02-19 13:04] VITALS: BP 133/70
== END 2018-02-19 13:36 | DRG 871 ==
LOC: ER 16:49 → ICU 18:12 → EROBS 18:12 → ICU 18:55 → 4E 02-14 00:24
PROVIDERS: Hospitalist; Internal Medicine; Internal Medicine Nephrology; Physician Assistant; Specialist
PROC: 02HV33Z Insertion of Infusion Device into Superior Vena Cava, Percutaneous Approach (ICD-10-PCS; principal; 2018-02-11)
DX: A41.9 Sepsis, unspecified organism (principal); L89.154 Pressure ulcer of sacral region, stage 4; G92 Toxic encephalopathy; E43 Unspecified severe protein-calorie malnutrition; R65.21 Severe sepsis with septic shock; J69.0 Pneumonitis due to inhalation of food and vomit; N39.0 Urinary tract infection, site not specified; N17.9 Acute kidney failure, unspecified; E87.0 Hyperosmolality and hypernatremia; Z68.1 Body mass index [BMI] 19.9 or less, adult; I69.351 Hemiplegia and hemiparesis following cerebral infarction affecting right dominant side; J98.11 Atelectasis; E86.0 Dehydration; R13.12 Dysphagia, oropharyngeal phase; I12.9 Hypertensive chronic kidney disease with stage 1 through stage 4 chronic kidney disease, or unspecified chronic kidney disease; N18.3 Chronic kidney disease, stage 3 (moderate); H10.021 Other mucopurulent conjunctivitis, right eye; D64.9 Anemia, unspecified; F32.9 Major depressive disorder, single episode, unspecified; F03.90 Unspecified dementia, unspecified severity, without behavioral disturbance, psychotic disturbance, mood disturbance, and anxiety; I73.9 Peripheral vascular disease, unspecified; E87.6 Hypokalemia; B96.20 Unspecified Escherichia coli [E. coli] as the cause of diseases classified elsewhere; B96.4 Proteus (mirabilis) (morganii) as the cause of diseases classified elsewhere; Z96.641 Presence of right artificial hip joint; Z89.611 Acquired absence of right leg above knee; Z93.3 Colostomy status; Z86.14 Personal history of Methicillin resistant Staphylococcus aureus infection; Z87.891 Personal history of nicotine dependence; Z79.899 Other long term (current) drug therapy
CPT/HCPCS: 10078; 10783; 27000

== ENCOUNTER 2018-09-04 13:24 | Inpatient (IN) | payer OTHER ==
[~2018-09-04] VITALS: Ht 182.9 cm; Wt 68.4 kg
--- NOTE | ~2018-09-04 | HC ---
[facility] [place] [place] [address] CONSULTATION Name: KATELYN LAMB Room #: 217-P ADM IN M.R.#: [id number] Admission: 09/04/18 Attend Phys: Renetta Kay MD Discharge: Date of : 41 Report #: [id number] THIS REPORT FOR: //name// CC: Renetta Kay DATE OF SERVICE: 09/05/2018 CHIEF COMPLAINT: Left foot wounds. HISTORY OF PRESENT ILLNESS: This is a 78-year-old white male that we have taken care of in the past for decubitus ulcers in the gluteal and sacral region as well as multiple other wounds. The patient also had wound on his right lower extremity, ultimately requiring an above the knee amputation. The patient is currently admitted for urinary tract infection, and we have been asked to care for the wounds at this time. The patient himself is unable to give any history whatsoever secondary to advanced dementia and there is no one else in the room to give any other history. PAST MEDICAL HISTORY: From the records is significant for hypertension, previous CVA with right-sided weakness, severe protein-calorie malnutrition, depression, severe dementia, peripheral vascular disease, suprapubic catheter secondary to urinary retention, colostomy. CURRENT MEDICATIONS: Multiple, I reviewed the patient's medication list. DRUG ALLERGIES: None. SOCIAL HISTORY: The patient resides in [place]. The patient has a history of smoking, quitting several years ago. No alcohol use at this time. FAMILY HISTORY: Not pertinent to current medical condition. REVIEW OF SYSTEMS: Unobtainable secondary to the patient's dementia. PHYSICAL EXAMINATION: VITAL SIGNS: Temperature 37.1, pulse 68, respirations 12, BP 94/48. GENERAL: This is an alert and oriented x 1 person, but not place or time, white male who is chronically ill appearing and appears very frail. HEENT: Normocephalic, atraumatic. Mucous membranes are dry. Pupils are round. Sclerae are white. NECK: Supple, without JVD or masses. LUNGS: Diminished breath sounds heard throughout with occasional scattered wheeze. HEART: Regular, without murmur. ABDOMEN: Soft, nontender. Colostomy is in place and functioning well. EXTREMITIES: Evaluation of his sacral and gluteal area reveals blanchable [facility] [address] [place] [address] CONSULTATION Name: KATELYN LAMB Room #: [address] [place] [address] IN .R.#: [id number] Admission: 09/04/18 Attend Phys: Renetta Kay MD Discharge: Date of : 41 Report #: [id number] erythema and old scar tissue from previous ulceration, but no new or open ulcerations are noted. Evaluation of right gnmxi-ksu-rmcq amputation reveals no open ulcerations. The stump is warm and appears intact. Evaluation of left lower extremity reveals 2 deep tissue injuries along the lateral aspect of the left foot, one at the base of the fifth metatarsal and one the head of the fifth metatarsal. Neither one of these are open. They are ecchymotic with the matti-ulcer being intact without significant erythema or signs of cellulitis. NEUROLOGIC: Cranial nerves 2-12 are grossly intact. Motor and sensory grossly intact. LABORATORY DATA: White count 27.7, hemoglobin 16.7. Lactic acid was 2.5, albumin is 2.3, prealbumin is 11.6. Arterial Doppler of the left lower extremity shows decreased flow in the popliteal and infrapopliteal region in the left leg arteries suggesting a significant stenosis or occlusion proximally. IMPRESSION: 1. Urinary tract infection with sepsis. 2. Deep tissue injury to the base of the fifth metatarsal head on the lateral aspect without signs of cellulitis. No open ulceration at this time. 3. Deep tissue injury to the distal fifth metatarsal head lateral aspect with no open ulceration noted. No signs of cellulitis. 4. History of sacral and gluteal ulcerations, now resolved. 5. Severe dementia. 6. Hypertension. 7. Protein calorie malnutrition -- severe with albumin of 2.3 with prealbumin of 11.6. 8. Peripheral arterial disease with concern for occlusion or stenosis in the left lower extremity. PLAN: At this time, we will continue with foam dressings to the left lateral foot ulcerations, change this Saturday, Saturday and Saturday. We will get a heel protection boot, the patient to be worn at all times. We will get a low air loss mattress given the fact that the patient is at significant risk for breakdown in the bony prominences; however, no other signs of breakdown is noted. We will start barrier cream to the sacrococcygeal region for protection. Have the patient turned every 2 hours. We will put a consult in to Jordy Do for Interventional Radiology evaluation of the abnormal left lower extremity ultrasound. We will make sure we maximize the patient's protein supplementation for healing. We will attempt to utilize physical and occupational therapy; however, I do not think the patient is a good candidate for this given his advanced dementia. We will continue all other medicines and we will continue to follow the patient. [address] [place] [address] CONSULTATION Name: KATELYN LAMB Room #: 217-P ADM IN .R.#: [id number] Admission: 09/04/18 Attend Phys: Renetta Kay MD Discharge: Date of : 41 Report #: [id number] I appreciate the ability to consult. <ELECTRONICALLY SIGNED> By: Reginald Pleitez MD 09/09/18 0957 1155 1213 Reginald Pleitez MD /nt
[~2018-09-04 13:24] MED LIST changes: +AUGMENTIN 500-1 EACH PO; +CIPROFLOXIN HC2.5 M1 OPHTHALMIC; +NAMENDA 5 MG TAB5 M1 PO; +REMERON15 MG PO
[2018-09-04 13:25] VITALS: BP 109/78
[2018-09-04 14:02] LABS: URINE BLOOD NEGATIVE (Negative); URINE CLARITY CLOUDY; URINE COLOR BROWN; URINE GLUCOSE-RANDOM* NEGATIVE (Negative); URINE KETONES TRACE (Negative); URINE PROTEIN (DIPSTICK) 3+ (Negative); URINE SPECIFIC GRAVITY <= 1.005 (1.005-1.035)
[2018-09-04 14:03] LABS: URINE LEUKOCYTES-REFLEX 3+ (Negative); URINE NITRITE-REFLEX POSITIVE (Negative)
[2018-09-04 14:08] LABS: ICTOTEST (BILI CONFIRMATORY) Negative (Negative); URINE BILIRUBIN NEGATIVE (Negative)
[2018-09-04 14:09] LABS: TRIPLE PHOSPHATE CRYSTALS 0-3 Few /LPF (None Seen)
[2018-09-04 14:10] LABS: CASTS None Seen /LPF (None Seen); SQUAMOUS 0-3 Few /LPF (0-3)
[2018-09-04 14:11] LABS: URINE RBC None Seen /HPF (0-2); URINE WBC-REFLEX 0-5 Rare /HPF (0-5)
[2018-09-04 14:13] LABS: BACTERIA-REFLEX >30 Many /HPF (None Seen)
[2018-09-04 14:41] LABS: CREATININE 1.8 mg/dL (0.7-1.3); POTASSIUM 4.2 mmol/L (3.5-5.1)
[2018-09-04 14:55] LABS: HEMATOCRIT 51.8 % (42.0-52.0); HEMOGLOBIN 16.7 gm/dL (14.0-18.0); MCH 26.4 pg (26.0-34.0); MCHC 32.2 g/dL (28.0-37.0); MCV 81.8 fL (80.0-100.0); RBC 6.33 mil/uL (4.50-6.00); WBC 27.7 thou/uL (4.0-11.0)
[2018-09-04 15:25] LABS: ABSOLUTE NEUTROPHILS 20.8 thou/uL (1.4-8.2); PLATELET COUNT 301 thou/uL (150-400)
[2018-09-04 15:51] VITALS: BP 106/76
[2018-09-04 16:17] VITALS: BP 117/68
[2018-09-04 17:28] VITALS: BP 96/55
[2018-09-04 19:35] VITALS: BP 101/75
[2018-09-05 03:50] VITALS: BP 107/81
[2018-09-05 05:59] LABS: CALCIUM 9.1 mg/dL (8.5-10.1); CREATININE 1.5 mg/dL (0.7-1.3); POTASSIUM 3.9 mmol/L (3.5-5.1)
[2018-09-05 07:40] VITALS: BP 116/77
[2018-09-05 15:56] VITALS: BP 131/91
[2018-09-05 19:21] VITALS: BP 117/77
[2018-09-06 03:25] VITALS: BP 141/78
[2018-09-06 04:42] LABS: HEMATOCRIT 42.2 % (42.0-52.0); MCH 26.7 pg (26.0-34.0); MCHC 31.9 g/dL (28.0-37.0); MCV 83.8 fL (80.0-100.0); RBC 5.03 mil/uL (4.50-6.00); RDW 18.9 % (10.5-14.5); WBC 20.5 thou/uL (4.0-11.0)
[2018-09-06 04:46] LABS: HEMOGLOBIN 13.4 gm/dL (14.0-18.0)
[2018-09-06 04:51] LABS: CREATININE 1.8 mg/dL (0.7-1.3); POTASSIUM 3.5 mmol/L (3.5-5.1)
[2018-09-06 08:17] VITALS: BP 94/48
[2018-09-06 20:30] VITALS: BP 102/56
[2018-09-07 04:30] VITALS: BP 127/49
[2018-09-07 07:34] VITALS: BP 123/91
[2018-09-07 16:00] VITALS: BP 116/72
[2018-09-07 20:10] VITALS: BP 124/74
[2018-09-08 05:45] LABS: HEMATOCRIT 36.3 % (42.0-52.0); HEMOGLOBIN 11.6 gm/dL (14.0-18.0); MCH 26.1 pg (26.0-34.0); MCV 81.7 fL (80.0-100.0); RBC 4.44 mil/uL (4.50-6.00); RDW 17.8 % (10.5-14.5)
[2018-09-08 06:00] LABS: CALCIUM 8.6 mg/dL (8.5-10.1); CREATININE 1.3 mg/dL (0.7-1.3); POTASSIUM 3.8 mmol/L (3.5-5.1)
[2018-09-08 07:31] VITALS: BP 117/65
[2018-09-08 17:00] VITALS: BP 91/41
[2018-09-08 20:45] VITALS: BP 126/84
[2018-09-08 21:14] LABS: MAGNESIUM 1.8 mg/dL (1.8-2.4); TROPONIN-I 0.06 ng/mL (<0.06)
[2018-09-09 01:07] VITALS: BP 110/60
[2018-09-09 04:28] LABS: CALCIUM 8.2 mg/dL (8.5-10.1); CREATININE 1.1 mg/dL (0.7-1.3); POTASSIUM 4.2 mmol/L (3.5-5.1)
[2018-09-09 04:49] VITALS: BP 116/60
[2018-09-09 07:52] VITALS: BP 120/55
[2018-09-09 16:36] VITALS: BP 93/48
[2018-09-09 19:55] VITALS: BP 113/59
[2018-09-10 04:43] LABS: HEMATOCRIT 34.8 % (42.0-52.0); MCH 25.9 pg (26.0-34.0); MCHC 31.8 g/dL (28.0-37.0); MCV 81.6 fL (80.0-100.0); RBC 4.26 mil/uL (4.50-6.00); WBC 13.6 thou/uL (4.0-11.0)
[2018-09-10 04:45] VITALS: BP 111/65
[2018-09-10 08:44] VITALS: BP 103/81
[2018-09-10 10:52] VITALS: BP 77/28
[2018-09-10 10:53] VITALS: BP 60/52
[2018-09-10 19:31] VITALS: BP 118/62
[2018-09-11 00:45] VITALS: BP 94/63
[2018-09-11 06:07] VITALS: BP 124/42
[2018-09-11 07:30] VITALS: BP 105/69
[2018-09-11 11:10] VITALS: BP 11/76
[2018-09-11] MEDS ORDERED: MSL20MG/ML PO (14:37)
[2018-09-11 15:20] VITALS: BP 109/49
== END 2018-09-11 17:33 | DRG 853 ==
LOC: ER 13:24 → EROBS 15:34 → 4E 15:34 → 2N 09-08 15:42
PROVIDERS: Emergency Medicine; Internal Medicine
PROC: B4181ZZ Fluoroscopy of Bilateral Renal Arteries using Low Osmolar Contrast (ICD-10-PCS; principal; 2018-09-09)
PROC: 047A34Z Dilation of Left Renal Artery with Drug-eluting Intraluminal Device, Percutaneous Approach (ICD-10-PCS; principal; 2018-09-09)
PROC: B4101ZZ Fluoroscopy of Abdominal Aorta using Low Osmolar Contrast (ICD-10-PCS; principal; 2018-09-09)
PROC: 047934Z Dilation of Right Renal Artery with Drug-eluting Intraluminal Device, Percutaneous Approach (ICD-10-PCS; principal; 2018-09-09)
DX: A41.9 Sepsis, unspecified organism (principal); E43 Unspecified severe protein-calorie malnutrition; J69.0 Pneumonitis due to inhalation of food and vomit; E87.0 Hyperosmolality and hypernatremia; N39.0 Urinary tract infection, site not specified; N17.9 Acute kidney failure, unspecified; I69.351 Hemiplegia and hemiparesis following cerebral infarction affecting right dominant side; I10 Essential (primary) hypertension; F32.9 Major depressive disorder, single episode, unspecified; F03.90 Unspecified dementia, unspecified severity, without behavioral disturbance, psychotic disturbance, mood disturbance, and anxiety; I73.9 Peripheral vascular disease, unspecified; R65.20 Severe sepsis without septic shock; E86.0 Dehydration; T14.8XXA Other injury of unspecified body region, initial encounter; E86.9 Volume depletion, unspecified; D64.9 Anemia, unspecified; S30.810A Abrasion of lower back and pelvis, initial encounter; E11.622 Type 2 diabetes mellitus with other skin ulcer; R13.12 Dysphagia, oropharyngeal phase; A49.02 Methicillin resistant Staphylococcus aureus infection, unspecified site; I95.9 Hypotension, unspecified; Z28.21 Immunization not carried out because of patient refusal; Z93.3 Colostomy status; Z87.891 Personal history of nicotine dependence; Z68.20 Body mass index [BMI] 20.0-20.9, adult; X58.XXXA Exposure to other specified factors, initial encounter; Y93.89 Activity, other specified; Y92.89 Other specified places as the place of occurrence of the external cause; Y99.8 Other external cause status
CPT/HCPCS: 10081; 10084

== ENCOUNTER 2020-06-16 17:40 | Inpatient (IN) | payer OTHER ==
[~2020-06-16] VITALS: Ht 170.2 cm; Wt 71.9 kg
[~2020-06-16 17:40] MED LIST changes: +MSL20MG/ML PO
[2020-06-16 17:45] VITALS: BP 111/81
[2020-06-16 18:20] LABS: ABSOLUTE NEUTROPHILS 6.1 thou/uL (1.4-8.2); BASOPHILS 0.3 % (0.0-2.0); EOSINOPHILS 0.2 % (0.0-3.0); HEMOGLOBIN 15.6 gm/dL (14.0-18.0); LYMPHOCYTES 21.8 % (24.0-44.0); MCH 27.1 pg (26.0-34.0); MCHC 31.8 g/dL (28.0-37.0); MCV 85.3 fL (80.0-100.0); MONOCYTES 11.7 % (1.0-8.0); RBC 5.74 mil/uL (4.50-6.00); RDW 16.6 % (10.5-14.5); WBC 9.3 thou/uL (4.0-11.0)
[2020-06-16 18:31] LABS: CALCIUM 9.1 mg/dL (8.5-10.1); DIRECT BILIRUBIN 0.2 mg/dL (<0.1-0.2); POTASSIUM 3.8 mmol/L (3.5-5.1); TOTAL BILIRUBIN 0.8 mg/dL (0.2-1.0)
[2020-06-16 18:47] LABS: ANISOCYTOSIS 1+; LARGE PLATELETS FEW; PLATELET COUNT 207 thou/uL (150-400)
[2020-06-16] MEDS ORDERED: ASCORBIC ACID500 M3 PO (19:54)
[2020-06-16] MEDS ORDERED: VITAMIN D325 MC4 PO (19:54)
[2020-06-16] MEDS ORDERED: ZINC SULFATE220 MG PO (19:55)
[2020-06-16] MEDS ORDERED: NIZORAL A-D125 ML TOP (19:56)
[2020-06-16] MEDS ORDERED: METROGEL60 GM TOP (19:56)
[2020-06-16 20:28] LABS: BE(vivo) -2.2 mmol/L (-2 to +3); HCO3 20.1 mmol/L (22.0-26.0); PCO2 29.1 mmHg (35.0-45.0); PO2 61.2 mmHg (80.0-100.0); pH 7.458 (7.360-7.450)
[2020-06-16 23:53] VITALS: BP 97/69
[2020-06-16 23:57] VITALS: BP 90/64
[2020-06-17 00:39] VITALS: BP 153/87
--- NOTE | 2020-06-17 01:31 | NUR ---
PT ADMITTED FROM ED. [facility]. HE IS ALERT AND NOT VERBALLY RESPONSIVE. PT DOES HAVE EYE CONTACT, BLUNTED AFFECT. SUPRA PUBIC CATHETER DARK TEA URINE, COLOSTOMY BROWN STOOL. O2 PER NC 4L. PT TESTED POSITIVE FOR COVID ON SATURDAY, NEW SWAB NOT DONE IN ED. PT IS FLUSHED, R AKA, L SIDE WEAKNESS AND CONTRACTURES, TURNS HEAD TO THE LEFT. IVF INTACT, BED ALARM ON.
[2020-06-17 04:38] VITALS: BP 98/64
[2020-06-17 04:55] LABS: HEMATOCRIT 43.9 % (42.0-52.0); MCH 27.2 pg (26.0-34.0); RBC 5.17 mil/uL (4.50-6.00); RDW 16.3 % (10.5-14.5)
[2020-06-17 04:58] LABS: POTASSIUM 3.2 mmol/L (3.5-5.1)
--- NOTE | 2020-06-17 07:24 | EKG ---
[facility] [place] [address] ELECTROCARDIOGRAM REPORT Name: KATELYN LAMB Room #: 364-P ADM IN M.R.#: [id number] Admission: 06/16/20 Attend Phys: Krishna Quinn MD Discharge: Date of : 41 Report #: [id number] THIS REPORT FOR: cc: Renetta Kay MD, Ramilo MD Santiago,Poncho REDDING MERGED [facility] ~ THIS REPORT FOR: //name// [facility] ED Test Date: 2020-06-16 Test Time: 17:56:32 Pat Name: KATELYN LAMB Department: Room: 364 Gender: M Intelligence Operations Specialist: ANANYA : 1940 Requested By: Payton Catherine Order Number: [id number] MD: Poncho Connell Measurements Intervals [place] Rate: 101 P: -75 NM: 161 QRS: 36 QRSD: 83 T: 80 QT: 445 QTc: 577 Interpretive Statements Sinus Tachycardia Atrial premature complexes Consider left ventricular hypertrophy Prolonged QT interval Compared to ECG 02/11/2018 17:00:09 No significant change Electronically Signed On 06-17-2020 7:24:27 CDT by Poncho Connell [email or web address] <ELECTRONICALLY SIGNED> By: Poncho Connell MD, FAC 06/17/20 0724 175 1756 Poncho Connell MD, [facility] /EPI
[2020-06-17 08:03] VITALS: BP 102/69
--- NOTE | 2020-06-17 09:18 | NUR ---
WOUND/OSTOMY CONSULT; DUE TO COVID ISOLATION ASSESSMENT RESTRICTED, DISCUSSED STATUS W/ MINE SAFETY MANAGER ABDOULAYE, PER RN NO WOUNDS BUT PT DOES HAVE A COLOSTOMY AND NO SUPPLIES IN ROOM. ALSO FRAIL CONDITION AND COULD BENEFIT FROM LOW AIR LOSS PUMP TO BED. PT W/ LIMITED MOVEMENT RECOMMENDATIONS; WILL ORDER LOW AIR LOSS PUMP, OSTOMY SUPPLIES LUDWIG CUT TO FIT GIVEN TO MINE SAFETY MANAGER TO PUT IN PTS ROOM, INFORMED TO CONSULT WOC NURSE AGAIN IF NEEDED ESPECIALLY IF NEEDED FOR WOUND CARE MINE SAFETY MANAGER AWARE
[2020-06-17 11:11] LABS: URINE BILIRUBIN NEGATIVE (Negative); URINE BLOOD 2+ (Negative); URINE CLARITY CLOUDY; URINE GLUCOSE-RANDOM* NEGATIVE (Negative); URINE KETONES NEGATIVE (Negative); URINE PROTEIN (DIPSTICK) 2+ (Negative); URINE SPECIFIC GRAVITY <= 1.005 (1.005-1.035); URINE UROBILINOGEN 0.2 E.U./dl (0.2-1.0)
[2020-06-17 11:13] LABS: URINE COLOR DARK YELLOW; URINE LEUKOCYTES-REFLEX 2+ (Negative); URINE NITRITE-REFLEX POSITIVE (Negative)
[2020-06-17 11:26] LABS: CASTS None Seen /LPF (None Seen); SQUAMOUS None Seen /LPF (0-3); TRIPLE PHOSPHATE CRYSTALS >10 Many /LPF (None Seen)
[2020-06-17 11:27] LABS: URINE RBC 3-10 Few /HPF (0-2); URINE WBC-REFLEX 6-15 Few /HPF (0-5)
[2020-06-17 12:12] VITALS: BP 104/74
--- NOTE | 2020-06-17 14:54 | NUR ---
PT'S CALLED THIS MORNING TO ASK ABOUT PT'S STATUS REGARDING URINE ANALYSIS WELL PROGRESS OF COVID 19. RN EXPLAINED THAT UA IS IN PROGRESS AT THIS TIME WELL DIFFERENT PRESENTATION OF COVID 19 PER PT. THEN VOICED HER CONCERN ABOUT KEEPING PT CLEAN, PT WAS CLEANED BY 2 INSTRUMENT AND CONTROLS TECHNICIAN, BED BATH WAS PROVIDED WELL SHAMPOOING OF THE HAIR, RN WIPED THE HAIR DOWN AND PT IS CLEAN AT THIS TIME. LEAKAGE FROM SUPRAPUBIC CATHETER WAS NOTED, TOWEL WAS PLACED IN THAT SPOT TO SOAK THE URINE AND TO HINDER SKIN BREAKDOWN. WOUND CARE WAS CONSULTED, COLOSTOMY EQUIPMENTS WERE SENT OVER, TWO PIECE COLOSTOMY BAG WAS APPLIED BY THIS RN AND OLD BAG WAS DISCARDED. WILL UPDATE STATUS NEEDED
--- NOTE | 2020-06-17 15:11 | NUR ---
INITIAL ASSESSMENT: Received consult. ESTHER reviewed chart and spoke with nursing and attending physician. Pt was admitted from [facility] and placed in Enhanced Isolation due to COVID-19. Pt is febrile and requiring 4L of O2. Pt is on IV abx. ID consulted. ESTHER spoke with pt's , Libby, via phone. Introduced role of SW. Pt with hx of CVA and is total care at the nursing facility. Libby confirms plan is for pt to return to [facility]. Unsure of discharge timeframe. service planner to fax clinical info to [facility] for review. ESTHER is following to assist as needed with discharge planning.
[2020-06-17 16:18] VITALS: BP 102/65
--- NOTE | 2020-06-17 16:35 | NUR ---
PT IS FROM [facility] FAXED CLINICAL UPDATE RECEIVED CONFIRMATION AND LEFT MSG WITH SKYLA IN ADM. DP TO FOLLOW.
[2020-06-17 21:15] VITALS: BP 986/47
[2020-06-17 22:23] LABS: CALCIUM 8.5 mg/dL (8.5-10.1); CREATININE 2.2 mg/dL (0.7-1.3); POTASSIUM 3.4 mmol/L (3.5-5.1)
[2020-06-18 00:06] VITALS: BP 106/43
[2020-06-18 04:55] VITALS: BP 108/57
[2020-06-18 05:08] LABS: FIBRINOGEN 396.6 mg/dL (210-360); INR 1.1; PROTIME 11.3 Seconds (9.3-11.4)
[2020-06-18 05:10] LABS: ABSOLUTE NEUTROPHILS 5.3 thou/uL (1.4-8.2); BASOPHILS 0.1 % (0.0-2.0); EOSINOPHILS 0.1 % (0.0-3.0); HEMATOCRIT 41.8 % (42.0-52.0); HEMOGLOBIN 13.1 gm/dL (14.0-18.0); LYMPHOCYTES 9.7 % (24.0-44.0); MCHC 31.4 g/dL (28.0-37.0); MCV 85.9 fL (80.0-100.0); MONOCYTES 2.9 % (1.0-8.0); PLATELET COUNT 129 thou/uL (150-400); POLYS 87.2 % (36.0-66.0); RBC 4.86 mil/uL (4.50-6.00); RDW 16.7 % (10.5-14.5); WBC 6.1 thou/uL (4.0-11.0)
[2020-06-18 05:21] LABS: ALBUMIN 2.2 g/dL (3.4-5.0); CALCIUM 8.1 mg/dL (8.5-10.1); CREATININE 1.6 mg/dL (0.7-1.3); POTASSIUM 3.3 mmol/L (3.5-5.1); TOTAL BILIRUBIN 0.6 mg/dL (0.2-1.0); TOTAL PROTEIN 7.4 g/dL (6.4-8.2)
--- NOTE | 2020-06-18 05:47 | NUR ---
NOTED UPWARD TREND OF SODIUM WHICH WAS 173 VIA LAB DRAW LAST NIGHT. SPOKE TO ASSISTANT AUDITOR, CHANGE FLUIDS TO DEX % AT 100ML/HR. THIS AM SODIUM LEVEL AT 167. CONTINUE TO MONITOR.
[2020-06-18 06:05] LABS: ANISOCYTOSIS 1+; LARGE PLATELETS OCCASIONAL
--- NOTE | 2020-06-18 07:13 | NUR ---
PATIENT ADMIT FROM [facility], PER C.M. NOTE AND R.N PATIENT IS TOTAL CARE, HX OF CVA. PLAN IS TO D/C BACK TO LTC WHEN MEDICALLY STABLE. NOT APPROPRIATE FOR ACUTE OT SERVICES, WILL SIGN OFF. PLEASE RECONSULT IF NEEDED.
--- NOTE | 2020-06-18 08:19 | NUR ---
ORDERS FOR EVAL AND TREAT. Pt IS FROM LTC AND IS [facility]. Pt IS NOT APPROPRIATE FOR THERAPY IN THE ACUTE SETTING
--- NOTE | 2020-06-18 13:06 | NUR ---
PT CURRENTLY ON ROOM AIR AND TOLERATING AROUND 95% O2, COLOSTOMY POUCH IS LEAKY AROUND THE UMBILICUS AREA, WILL CHANGE. PT'S SALCEDO BAG IS BEING MONITORED, SUPRAPUBIC CATHETER STILL LEAKING URINE. FULL BED CHANGE AND COMPLETE BATH GIVEN PER REQUEST BY PT'S FAMILY. CONTINUING TO MONITOR. CONVALESCENT PLASMA CONSENT RECEIVED, SPEAKING WITH BLOOD BANK TO COORDINATE ADMINISTRATION TODAY. TYPE AND CROSS FINISHED, AWAITING BLOOD BANK TO CALL AT THIS TIME. D5 SWITCHED FROM 100 TO 150CC AN HOUR THEN SWITCHED BACK TO 100CC/HR PER 'S REQUEST. CONTINUING TO BEATRICEOR AND WILL UPDATE NEEDED
[2020-06-18 15:19] VITALS: BP 119/36; BP 128/59
[2020-06-18 20:57] VITALS: BP 114/47
--- NOTE | 2020-06-19 01:16 | NUR ---
PT RESTING IN BED. PT EYES OPEN AND FOLLOWING NURSE DURING HER INTERVENTIONS. PT NOT VERBAL. EKG COMPLETED PER REPORT SINCE PT MAINTAINING SB. SUPRA PUBIC SALCEDO INTACT, CONTINUES TO LEAK, COLOSTOMY INTACT. IVF INTACT. REMDESIVIR GIVEN. CONTRACTED TOWARDS L SIDE. BED ALARM.
[2020-06-19 04:39] VITALS: BP 123/62
[2020-06-19 06:31] LABS: CALCIUM 8.1 mg/dL (8.5-10.1); CREATININE 1.6 mg/dL (0.7-1.3); PHOSPHORUS 2.4 mg/dL (2.5-4.9)
[2020-06-19 08:11] VITALS: BP 141/98
[2020-06-19 10:58] VITALS: BP 103/41
[2020-06-19 15:50] VITALS: BP 122/88
--- NOTE | 2020-06-19 18:47 | NUR ---
PT SEEN TODAY BY , PT'S SKIN CONDITION IS BEING MONITORED CLOSELY RELATED TO LEAKY SUPRAPUBIC CATHETER AND INCREASED RISK OF SKIN INTEGRITY DETERIORATION. IR TO BE CONSULTED TOMORROW SINCE NOT AVAILABLE ON SATURDAY. WILL CONTACT THEM. 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 POTASSIUM BEING REPLACED AND TO BE RECHECKED AT 1999, LAB DRAW ALREADY ORDERED. CONTINUING TO MONITOR PASSING ON TO [place] NOC SHIFT
[2020-06-19 20:27] VITALS: BP 95/42
[2020-06-20 05:45] VITALS: BP 97/52
[2020-06-20 07:46] VITALS: BP 118/59
--- NOTE | 2020-06-20 08:09 | EKG ---
[facility] [place] [address] ELECTROCARDIOGRAM REPORT Name: KATELYN LAMB Room #: 364-P ADM IN M.R.#: [id number] Admission: 06/16/20 Attend Phys: Erlinda Cannon MD Discharge: Date of : 42 Report #: [id number] THIS REPORT FOR: cc: Renetta Kay MD, Ramilo MD Couchonnal, Luis F. MD ~ THIS REPORT FOR: //name// [facility] Test Date: 2020-06-18 Test Time: 21:08:08 Pat Name: KATELYN LAMB Department: Room: 364 P Gender: M [employer] Ideas: [id number] : 1940 Requested By: Victoria Mares Order Number: [id number] MD: Lai Christopher Measurements Intervals [place] Rate: 45 P: 240 WA: 167 QRS: 47 QRSD: 134 T: -83 QT: 483 QTc: 418 Interpretive Statements Sinus or ectopic atrial bradycardia Probable LVH with secondary repol abnrm Anterior Q waves, possibly due to LVH Baseline wander in lead(s) II,III,aVF Compared to ECG 06/16/2020 17:56:32 Electronically Signed On 06-20-2020 8:09:34 CDT by Lai Christopher [email or web address] <ELECTRONICALLY SIGNED> By: Lai Christopher MD 06/20/20808 07 07 Lai Christopher MD /EPI
[2020-06-20 08:18] LABS: ALBUMIN 1.9 g/dL (3.4-5.0); CREATININE 1.3 mg/dL (0.7-1.3); PHOSPHORUS 2.4 mg/dL (2.5-4.9); POTASSIUM 3.6 mmol/L (3.5-5.1)
--- NOTE | 2020-06-20 10:15 | NUR ---
WOUND/OSTOMY F/U DUE TO COVID ISOLATION LIMITED ASSESSMENT, PER ABDOULAYE PANTRY GOODS MAKER PT HAS NO WOUNDS, OSTOMY FUNCTIONING W/ OUT ISSUES BUT NEEDING MORE OSTOMY SUPPLIES. LUDWIG 2 PIECE SYSTEM W/ ADAPT RINGS GIVEN TO PANTRY GOODS MAKER. WILL CONT TO FOLLOW PRN, CONT LOW AIR LOSS PUMP TO BED
[2020-06-20 13:09] VITALS: BP 118/50
--- NOTE | 2020-06-20 14:07 | NUR ---
SUPRAPUBIC CATHETER CHANGED USING STERILE TECHNIQUE. 20CC BALLOON DEFLATED PRIOR TO REMOVAL OF OLD CATH. PLACED A 24F WITHOUT DIFFICULTY, 30 CC BALLOON INFLATED. PT TOLERATED PROCEDURE WITHOUT ANY COMPLICATIONS.
--- NOTE | 2020-06-20 15:26 | NUR ---
ESTHER reviewed chart and spoke with nursing and attending physician. Pt is in Enhanced Isolation due to COVID-19. Pt is completing course of Remdesivir. Pt is afebrile and not requiring O2. Pt is on IV abx. ESTHER provided update to Katia in admissions at [facility]. Pt will need a repeat COVID test 24-48 hours prior to discharge. Plan is for pt to discharge back to [facility] when medically stable. ESTHER is following to assist as needed with discharge planning.
[2020-06-20 16:01] VITALS: BP 139/58
--- NOTE | 2020-06-20 18:09 | NUR ---
UPDATED REGARDING CURRENT STATUS, PT IS STILL ON REMDESEVIR THERAPY AT THIS TIME. Q2H TURNS HAVE BEEN MAINTAINED. SUPRAPUBIC CATHETER WAS CHANGED OUT DURING THIS SHIFT. PT DOES NOT COMPLAIN OF PAIN, AND RESPONDS YES OR NO TO QUESTIONS. MEALS FED BY MEDICAL STAFF. NEW SALCEDO IS DRAINING ALOT BETTER, AND NOT LEAKY ANYMORE. COLOSTOMY BAG EMPTIED TWICE THIS SHIFT. CONTINUING CURRENT THERAPY; WILL UPDATE NECESSARY
[2020-06-20 20:47] VITALS: BP 103/41
[2020-06-21 05:48] VITALS: BP 141/60
--- NOTE | 2020-06-21 06:48 | NUR ---
Q2 TURNS ATTEMPTED PT GETS UPSET AND MOVES BACK TO LEFT SIDE. FOLLOWING POC WITH IVF AND IVPB ANTIBIOTICS. VSS, TELE SHOWS HR IN HIGH 40-60'S. NEW SUPRAPUBIC CATH SHOWING EXCELLENT OUTPUT WITH OVER 2000 ML OVERNIGHT.
[2020-06-21 07:58] VITALS: BP 115/56
[2020-06-21 08:44] LABS: ABSOLUTE NEUTROPHILS 4.9 thou/uL (1.4-8.2); BASOPHILS 0.1 % (0.0-2.0); HEMATOCRIT 40.4 % (42.0-52.0); LYMPHOCYTES 11.6 % (24.0-44.0); MCH 26.8 pg (26.0-34.0); MCHC 32.2 g/dL (28.0-37.0); MCV 83.1 fL (80.0-100.0); MONOCYTES 6.7 % (1.0-8.0); PLATELET COUNT 146 thou/uL (150-400); POLYS 81.6 % (36.0-66.0); RBC 4.86 mil/uL (4.50-6.00); RDW 15.6 % (10.5-14.5)
[2020-06-21 08:56] LABS: ALBUMIN 1.7 g/dL (3.4-5.0); CALCIUM 7.5 mg/dL (8.5-10.1); CREATININE 1.4 mg/dL (0.7-1.3); POTASSIUM 3.5 mmol/L (3.5-5.1); TOTAL BILIRUBIN 0.5 mg/dL (0.2-1.0)
[2020-06-21 09:05] LABS: FIBRINOGEN 309.3 mg/dL (210-360); INR 1.2; PROTIME 12.3 Seconds (9.3-11.4)
--- NOTE | 2020-06-21 13:48 | NUR ---
ESTHER reviewed chart and spoke with nursing and attending physician. Pt is in Enhanced Isolation due to COVID-19. Pt is afebrile and not requiring O2. Pt is on IV abx and IV steroids. Pt to finish course of Remdesivir today. Palliative care physician consulted and spoke with pt's . Pt's would like referral to [facility] (now [facility] Discharge back to [facility] is anticipated for tomorrow. environmental emergencies planner to fax clinical updates to the facility for review. ESTHER notified sterile process coordinator, who confirms they are able to accept pt back with hospice. Will need repeat COVID test 24-48 hours prior to discharge. Test ordered today. ESTHER spoke with pt's via phone to provide update and discuss hospice referral. Pt has been on service with hospice in the past. ESTHER faxed clinical info to hospice and spoke with Marichuy in intake to notify of new referral. ESTHER is following to assist as needed with discharge planning.
[2020-06-21 15:22] VITALS: BP 140/78
--- NOTE | 2020-06-21 16:26 | NUR ---
FAXED CLINICAL UPDATE TO [facility] RECEIVED CONFIRMATION AND LEFT MSG WITH SKYLA IN ADM.
[2020-06-21 19:20] VITALS: BP 117/42
--- NOTE | 2020-06-21 19:39 | NUR ---
ASSUMED PATIENT CARE AT 0700. ALERT TO SELF. NONE VERBLE. VSS. SB/ AFIB ON MONITOR. NO DISDRESS NOTED. AFEBRILE. PROGRESSING TOWARDS POC GOALS.
--- NOTE | 2020-06-21 20:33 | NUR ---
LAB CALLED WITH POSITIVE COVID RESULT. FOLLOWED POC AND NOTIFIED HOUSE SUP AND TREE CUTTER. CRITICAL LAB NOTE ENTERED.
[2020-06-22 04:58] VITALS: BP 125/42
--- NOTE | 2020-06-22 06:11 | NUR ---
PT IS DEPENDENT ON ALL ADLS. Q2 TURNS ATTEMPTED, PT GETS ANGRY AND ROLLS BACK TO HIS LEFT SIDE. SUPRA PUBIC CATH IN PLACE WITH GOOD OUTPUT. PT ENJOYED THE ENSURE PUDDING. HR AND ELEVATED INTO THE MID 60'S NOW. PT MORE ALERT AND YELLS OUT EVERY NOW AND THEN. VSS.
[2020-06-22 07:54] VITALS: BP 95/76
[2020-06-22 11:25] VITALS: BP 102/62
--- NOTE | 2020-06-22 14:33 | NUR ---
DISCHARGE NOTE: SW reviewed chart and spoke with nursing and attending physician. Pt is in Enhanced Isolation due to COVID-19. Pt's repeat test yesterday is positive. Pt is afebrile and not requiring O2. Pt is medically stable for discharge back to [facility] with [facility]. SW faxed finalized discharge orders/summary to [facility] and [facility]. Stretcher van transportation scheduled for 1600 per facility's arrangements. ESTHER spoke with Nathanael at [facility], who states that pt's has signed admission ppwk and they will have a nurse eval pt later today. Outside the hospital DNR form signed by physician. Placed on chart. Pt's guardianship ppwk also placed on chart. Nursing aware of transportation time. No additional SW needs identified at this time, but is available to assist should needs arise.
--- NOTE | 2020-06-22 15:47 | NUR ---
PROVIDED REPORT TO JODI WITT AT [facility], PT IS TO BE TRANSFERRED VIA [facility] [employer]. NOTIFIED OF PT'S TRANSFER. WORKING WITH SOCIAL WORKERS. Q2H TURNS BEING MAINTAINED. COLOSTOMY SUPPLIES WILL BE SENT WITH THE PT. LUNCH WAS GIVEN AND D5 HAS BEEN INFUSING PER ORDER. PT WILL NOT BE RECEIVING 1700 MEDICATIONS. CONTINUING TO MONITOR UNTIL LEAVE. RN SIGNING OFF NOW
[2020-06-22 15:58] VITALS: BP 103/73
== END 2020-06-22 16:44 | disposition hospice, home (50) | DRG 871 ==
LOC: ER 17:40 → 3W 20:15 → EROBS 20:15 → 3W 06-17 00:33
PROVIDERS: Emergency Medicine; Internal Medicine Nephrology; Nurse Practitioner Family; Specialist; ADMIT Internal Medicine; ATTEND Internal Medicine
PROC: XW033E5 Introduction of Remdesivir Anti-infective into Peripheral Vein, Percutaneous Approach, New Technology Group 5 (ICD-10-PCS; principal; 2020-06-17)
PROC: XW033E5 Introduction of Remdesivir Anti-infective into Peripheral Vein, Percutaneous Approach, New Technology Group 5 (ICD-10-PCS; 2020-06-18)
PROC: XW13325 Transfusion of Convalescent Plasma (Nonautologous) into Peripheral Vein, Percutaneous Approach, New Technology Group 5 (ICD-10-PCS; 2020-06-18)
DX: A41.89 Other specified sepsis (principal); J12.89 Other viral pneumonia; U07.1 COVID-19; J96.01 Acute respiratory failure with hypoxia; J15.212 Pneumonia due to Methicillin resistant Staphylococcus aureus; E87.0 Hyperosmolality and hypernatremia; N17.9 Acute kidney failure, unspecified; I69.351 Hemiplegia and hemiparesis following cerebral infarction affecting right dominant side; J90 Pleural effusion, not elsewhere classified; N39.0 Urinary tract infection, site not specified; F32.9 Major depressive disorder, single episode, unspecified; F03.90 Unspecified dementia, unspecified severity, without behavioral disturbance, psychotic disturbance, mood disturbance, and anxiety; I12.9 Hypertensive chronic kidney disease with stage 1 through stage 4 chronic kidney disease, or unspecified chronic kidney disease; E86.0 Dehydration; Y95 Nosocomial condition; Z51.5 Encounter for palliative care; Z66 Do not resuscitate; N18.3 Chronic kidney disease, stage 3 (moderate); I73.9 Peripheral vascular disease, unspecified; Z96.641 Presence of right artificial hip joint; Z89.611 Acquired absence of right leg above knee; Z79.899 Other long term (current) drug therapy; Z87.891 Personal history of nicotine dependence; Z93.3 Colostomy status; Z90.49 Acquired absence of other specified parts of digestive tract; I69.321 Dysphasia following cerebral infarction
CPT/HCPCS: 10879